=== PATIENT | female | born 1965 | race Caucasian/White ===

== ENCOUNTER 2021-05-10 01:50 | Outpatient (CLI) | payer MEDICAID, SELFPAY ==
[2021-05-10 07:38] LABS: Abs Immature Grans 0.01 10^3/uL (0.0-0.06); Absolute Basophil Count 0.03 10^3/uL (0.0-0.2); Absolute Eosinophil Count 0.06 10^3/uL (0.0-0.7); Absolute Lymphocyte Count 1.72 10^3/uL (1.2-3.4); Basophils % 0.7; Eosinophils % 1.5; HCT 38.4 % (36.0-46.0); HGB 12.2 g/dL (11.2-15.7); Immature Grans % 0.2; Lymphocytes % 41.7; MCH 26.8 pg (27.0-33.0); MCHC 31.8 % (32.0-36.0); MCV 84.2 fL (80-95); Monocytes % 7.3; Neutrophils % 48.6; Nucleated RBC 0 %; Platelet Count 220 10^3/uL (130-400); RBC 4.56 10^6/uL (3.93-5.22); RDW 15.4 % (11.7-14.6); RDW-SD 47.4 fL; WBC 4.12 10^3/uL (4.4-10.8)
[2021-05-10 07:48] LABS: Hemoglobin A1C 5.6 % (<5.7)
[2021-05-10 08:23] LABS: Iron 52 ug/dL (50-170); Total Iron Binding Capacity 431 ug/dL (250-450)
[2021-05-10 09:03] LABS: ALT 27 U/L (14-59); AST 17 U/L (15-37); Albumin 3.8 g/dL (3.4-5.0); Alkaline Phosphatase 141 U/L (46-116); Anion Gap 10.4 mmol/L (3-11); BUN 14 mg/dL (7-18); Bilirubin, Total 0.4 mg/dL (0.2-1.0); CO2 27.6 mmol/L (21.0-32.0); CREATININE 0.8 mg/dL (0.55-1.02); Calculated LDL 128 mg/dL (<100); Chloride 105 mmol/L (98-107); Cholesterol 230 mg/dL (<200); Ferritin 9 ng/mL (8-252); Folate > 20.0 ng/mL (8.6-20.0); Glucose 94 mg/dL (74-106); HDL Cholesterol 87 mg/dL (40-60); Potassium 4.5 mmol/L (3.5-5.1); Sodium 143 mmol/L (136-145); T4 5.8 ug/mL (4.7-13.3); TSH 3.21 uIU/mL (0.36-3.74); Total Protein 7.7 g/dL (6.4-8.2); Triglyceride 79 mg/dL (<150); Vitamin B12 198 pg/mL (193-986)
[2021-05-10 11:13] LABS: FREE T4 0.83 ng/dL (0.76-1.46)
[2021-05-10 17:14] LABS: T3,Free 3.4 pg/mL (2.8-5.3)
[2021-05-12 11:29] LABS: Lipoprotein (a) <6 mg/dL (<=30)
[2021-05-13 09:18] LABS: Homocysteine 11.4 umol/L (5.0-13.9)
[2021-05-13 19:24] LABS: Free Retinol (Vitamin A) 48.7 mcg/dL (32.5-78.0)
[2021-05-14 17:32] LABS: 25-Hydroxy D Total 12 ng/mL; 25-Hydroxy D2 <4.0 ng/mL; 25-Hydroxy D3 12 ng/mL
[2021-05-16 10:24] LABS: Insulin 6.1 uIU/mL (<29.0)
== END 2021-05-10 01:51 | disposition home or self-care (01) ==
LOC: LBO 01:50
PROVIDERS: Visit Provider Naturopath
DX: R63.5 Abnormal weight gain (principal); D50.9 Iron deficiency anemia, unspecified; R53.83 Other fatigue; E55.9 Vitamin D deficiency, unspecified; Z13.220 Encounter for screening for lipoid disorders; R79.89 Other specified abnormal findings of blood chemistry
CPT/HCPCS: 36415; 80053; 80061; 82306; 82533; 83090; 83695; 82607; 82728; 82746; 83036; 83525; 83540; 83550; 84436; 84439; 84443; 84481; 84590; 85025

== ENCOUNTER 2021-05-21 01:39 | Outpatient (CLI) | payer MEDICAID, SELFPAY ==
--- NOTE | 2021-05-21 14:10 | DI.RAD_ITS ---
Exam(s) XR HIP PELVIS ADULT BL EXAM: XR HIP PELVIS ADULT BL CLINICAL HISTORY: BILAT HIP AND LOW BACK PAIN, M25.551. TECHNIQUE: 2D digital imaging was performed. COMPARISON: No exams were available for comparison FINDINGS: BONES: No acute fracture is present. No bony destructive lesion is seen. JOINTS: No dislocation present. Hip joint space is well maintained. Minimal acetabular spurring. Mi nimal spurring at inferior SI joints. SOFT TISSUE: Normal. IUD. IMPRESSION: Minimal degenerative changes. DATA REPOSITORY: RADIATION DOSE DELIVERED:
--- NOTE | 2021-05-21 14:50 | DI.RAD_ITS ---
Exam(s) XR LUMBAR SPINE COMPLETE EXAM: XR LUMBAR SPINE COMPLETE CLINICAL HISTORY: BILAT HIP PAIN AND LOW BACK PAIN. TECHNIQUE: 2D digital imaging was performed. COMPARISON: No exams were available for comparison FINDINGS: BONES: No fracture or destructive lesion. Vertebral bodies are unremarkable. Small endplate osteophyt es. Mild facet degenerative changes at L4-5 and L5-S1. No spondylolysis DISKS: Intervertebral disc spaces are maintained. ALIGNMENT: Lumbar spinal alignment is within normal limits. No spondylolisthesis. No scoliosis. SOFT TISSUE: Normal. IUD. IMPRESSION: Mild degenerative changes. DATA REPOSITORY: RADIATION DOSE DELIVERED:
== END 2021-05-21 01:59 ==
PROVIDERS: Visit Provider Naturopath
DX: M47.817 Spondylosis without myelopathy or radiculopathy, lumbosacral region (principal); M16.0 Bilateral primary osteoarthritis of hip
CPT/HCPCS: 73521; 72110

== ENCOUNTER 2021-06-20 01:20 | Outpatient (CLI) | payer MEDICAID, SELFPAY ==
--- NOTE | 2021-06-20 07:15 | DI.MAMMO_ITS ---
Exam(s) MAMMO SCREENING EXAM: MAMMO SCREENING CLINICAL HISTORY: screening,Z12.39. TECHNIQUE: Bilateral full field digital CC and MLO mammographic images were obtained with 3D tomosyn thesis and utilizing computer aided detection (CAD). COMPARISON: Prior outside mammograms performed January 2019. Also 2017. FINDINGS: There has been no significant change in the appearance and distribution of fibroglandular tissue. There are no new spiculated masses nor malignant appearing microcalcification groups. Benign lymph nodes in both breasts are unchanged. There is no significant architectural distortion nor skin thickening-retraction. IMPRESSION: No radiographic evidence of malignancy. No significant change compared the prior outside mammograms l isted above. BI-RADS Category 1 - Negative Breast Density - Category A - Almost entirely fatty Breast density Category C or D implies that the patient has dense breast tissue. Dense breast tissue can make it harder to find cancer on a mammogram. Dense breast tissue is also associated with an incr eased risk of breast cancer. This information about the result of the mammogram report was provided to the patient to raise their awareness. Use this report when you speak with the patient about their risks for breast cancer, which includes their family history. At that time, you may recommend additional screening tests (Ultrasoun d or MRI) as these tests may add significant information. A negative radiographic report should not delay biopsy if a dominant or clinically suspicious mass is present. Up to ten percent of cancers are not identified on mammography. A negative report may reinforce clinical impression. Adenosis and dense breasts may obscure an underlying neoplasm. False positive reports average 6 to 10%. Patient will receive a letter notifying them of these results.
== END 2021-06-20 01:40 ==
PROVIDERS: PCP Student in an Organized Health Care Education/Training Program; Visit Provider Student in an Organized Health Care Education/Training Program
DX: Z12.31 Encounter for screening mammogram for malignant neoplasm of breast (principal)
CPT/HCPCS: 77063; 77067

== ENCOUNTER 2021-06-23 17:05 | Emergency (ER) | payer MEDICAID, SELFPAY ==
[2021-06-23] VITALS (15 sets, daily range): BP systolic 107–129; BP diastolic 54–79; PULSE 76–93; RESP 9–21; TEMP 36.6–36.9; O2SAT 93–100
--- NOTE | 2021-06-23 17:15 | DI.RAD_ITS ---
Exam(s) XR PORTABLE CHEST AP EXAM: XR PORTABLE CHEST AP CLINICAL HISTORY: PUI, Wheezing, Cough. TECHNIQUE: 2D digital imaging was performed. COMPARISON: No exams were available for comparison FINDINGS: Heart size is normal. The mediastinum is not widened. However, there density behind the lower heart is probably an hiatal hernia. Lungs are clear. No infiltrates nor obvious pleural effusions. IMPRESSION: Probable hiatal hernia. No obvious acute pulmonary findings. DATA REPOSITORY: RADIATION DOSE DELIVERED: All CT scans at this facility use at least one of these dose optimization techniques: automated exposure control; mA and/or kV adjustment per patient size (includes targeted e xams where dose is matched to clinical indication); or iterative reconstruction.
--- NOTE | 2021-06-23 17:30 | W.ED.GENAD ---
Discharge Plan Disposition Patient Disposition: HOME Condition: Improving Discharge Details Clinical Impression: Asthma, URI (upper respiratory infection) Primary Care Provider: Laura Multani ED Provider: Lucrecia Stevens Home Meds and New Rx's Prescriptions: Continued cholecalciferol (vitamin D3) 50 mcg (2,000 unit) capsule 50 mcg PO DAILY RF: 0 vitamin B complex Tablet 1 tab PO DAILY RF: 0 hormone support PO RF: 0 albuterol sulfate [ProAir HFA] 90 mcg/actuation HFA aerosol inhaler 2 puff inhalation Q6H PRN (Reason: shortness of breath or wheezing) Qty: 8.5 RF: 1 Mirena 20 mcg/24 hours (6 yrs) 52 mg intrauterine device 1 device intrauterine ONCE RF: 0 ferrous sulfate 325 mg (65 mg iron) tablet 325 mg PO DAILY RF: 0 Discharge Instructions Instructions: Asthma (ED), Upper Respiratory Infection (ED) Additional Instructions: Follow up with primary care provider in 3-5 days. Return to ED sooner if any worsening or concerns. Increase oral fluids. Please take Tylenol or Ibuprofen with food every 4-6 hours as needed for pain and swelling. Covid swab today was negative chest x-ray shows no evidence at this time for pneumonia. Referrals: Laura Multani DO [Primary Care Provider] - Medical Decision Making 56-year-old female presents to the ER with chief complaint of upper respiratory symptoms cough fever, body aches, sore throat. She reports a fever of 100.0 for last 2 days. She has been fully vaccinated, denies recent travel and works from home. Denies sick contacts. History of asthma, has not had to use an inhaler for a year however did use it last night. History of gastric bypass, iron deficiency, hypothyroid.Denies nausea, vomiting, diarrhea, abd pain. No other associated symptoms. At this time work-up ordered including CBC, CMP, chest x-ray, 1 L normal saline albuterol ipratropium neb and 125 of Solu-Medrol. CBC shows no evidence of leukocytosis no elevated white blood cell count, glucose is 108 Covid is negative. Imaging protocol: XR of the chest. Views: 1 view. COMPARISON: No relevant prior studies available. FINDINGS: Airway: Patent Lungs: Unremarkable. No consolidation. Pleural spaces: Unremarkable. No pleural effusion. No pneumothorax. Heart/Mediastinum: Unremarkable. No cardiomegaly. Bones/joints: No acute skeletal abnormality or aggressive osseous lesion. IMPRESSION: No acute findings. Thank you for allowing us to participate in the care of your patient. Dictated and Authenticated by: Jaziel Barriga MD Patient reevaluation, she reports feeling better after nebulizer and steroid. Discussed home care and offered cough medicine which patient declined at this time. Instructed to increase fluid, use inhaler as directed 1 to 2 puffs every 4-6 hours as needed for wheezing, alternate Tylenol and ibuprofen and follow-up with primary care provider patient verbalized understanding. Patient remained hemodynamically stable alert and oriented throughout stay. This text was generated using [employer] dictation system, please disregard any oddities of phrase or misspellings. HPI General Mode of arrival: ambulatory. Date/Time Provider Initiated Documentation: 06/23/21 17:17. Limitations to Documentation: no limitations. Information obtained by: patient and RN notes reviewed. HPI Narrative: 56-year-old female presents to the ER with chief complaint of upper respiratory symptoms cough fever, body aches, sore throat. She reports a fever of 100.0 for last 2 days. She has been fully vaccinated, denies recent travel and works from home. Denies sick contacts. History of asthma, has not had to use an inhaler for a year however did use it last night. History of gastric bypass, iron deficiency, hypothyroid.Denies nausea, vomiting, diarrhea, abd pain. No other associated symptoms. Related Data Home Medications Medication Instructions Recorded Confirmed levonorgestrel 20 mcg/24 hours (6 1 device INTRAUTERINE ONCE 05/21/21 06/23/21 yrs) 52 mg intrauterine device ferrous sulfate 325 mg (65 mg 325 mg PO DAILY 05/23/21 06/23/21 iron) tablet albuterol sulfate 90 mcg/actuation 2 puff INHALATION Q6H PRN #8.5 g 05/24/21 06/23/21 aerosol inhaler cholecalciferol (vitamin D3) 50 50 mcg PO DAILY 05/24/21 06/23/21 mcg (2,000 unit) capsule hormone support PO 05/24/21 vitamin B complex 1 tab PO DAILY 05/24/21 06/23/21 Previous Rx's Medication Instructions Recorded albuterol sulfate 90 mcg/actuation 2 puff INHALATION Q6H PRN #8.5 g 05/24/21 aerosol inhaler Allergies Allergy/AdvReac Type Severity Reaction Status Date / Time No Known Allergies Allergy Verified 06/23/21 17:14 General Stated Complaint: RespSymp JAVI: 3 Review of Systems All systems reviewed & are unremarkable except as noted in HPI and below Constitutional Constitutional: Reports body ache(s), Reports chills and Reports fever(s) ENT Ears, Nose, Mouth, and Throat: Reports as per HPI, Denies abnormal hearing, Denies change in voice, Denies otalgia and Reports odynophagia Cardiovascular Cardiovascular: Denies chest pain Respiratory Respiratory: Reports chest congestion, Reports cough and Reports pain with cough Gastrointestinal Gastrointestinal: Denies abdominal pain, Denies diarrhea, Reports odynophagia and Denies vomiting Genitourinary Genitourinary: Denies difficulty voiding and Denies dysuria Musculoskeletal Musculoskeletal: Reports myalgias Neurologic Neurologic: Denies abnormal hearing [facility] Medical History Amenorrhea x 1.5 yrs. Probable menopause. Asthma (~2013) Back pain Acute on chronic. Wondering about breast reduction. Dysphagia Recent choking episodes, difficulty w/ pills. Encounter for insertion of mirena IUD (11/10/16) Family history of diabetes mellitus in father Hip pain, right Possible ITB. Hx low back pain. Recent weight gain. History of blood transfusion Due to heavy menses over 3-4 years (x2), in [place]. Hypothyroid Hypovitaminosis D Intramural uterine fibroid Iron deficiency anemia (~2013) Joint pain Menometrorrhagia Poor sleep Weight gain Surgical History History of gastric bypass (~2001) Family History Brother Alcohol abuse Anxiety Depression Father Anxiety Depression Diabetes Hypertension Prostate cancer Mother Depression Hypertension Maternal Aunt Diabetes Paternal Aunt Diabetes Maternal Uncle Diabetes Paternal Uncle Diabetes Paternal Grandmother Heart disease Hypertension Paternal Grandfather Heart disease Hypertension Maternal Grandmother Hypertension Paternal Grandfather Hypertension Social History Smoking/Tobacco Use Status: Former Tobacco Use tobacco type: cigarettes Quit Date: 11/02/16 Tobacco: How many years used: 10 Smoking risk assessment performed?: Yes Alcohol Intake: current Alcohol Intake frequency: a few times a month Drug use: Never Substance use type: does not use Adopted: No Caregiver/Support person: No Foster care: No Household members: spouse Housing: house Number of Children: 1 number of grandchildren: 2 Communication Needs: Corrective Lenses Education Level: vocational Do you need help understanding health information?: Never 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 Pets and animals: No Sexually active: Yes Do you think of yourself as: straight/heterosexual Current gender identity: female What is your relationship status?: How often do you talk on the phone with friends or family?: three or more times per week How often do you get together with friends or relatives?: once per week Do you belong to any clubs or organized social groups?: no Panel score (0-1 are the most socially isolated patients): 2 What type of physical activity do you participate in: walking Duration: 30-45 minutes/day Frequency: 3-4 times per week Liliana/Rastafari: Oriental Orthodox Special liliana needs: No Seatbelt use: always Helmet use: Yes Helmet use: always Drive intox or ride w/intox auto haulaway driver: No Exam Narrative Exam Narrative: Constitutional: Alert and oriented x3. Appears stated age. Normal body habitus. Head: Normocephalic, no trauma. Eyes: Pupils PERRLA, Red reflex noted, EOM's intact. Eyelids symmetrical without lesions, discharge, or swelling. ENT: Bilateral TM's WNL, External ear normal to inspection, no mastoid TTP, swelling, or erythema, Nasal turbinates WNL, no nasal discharge. Normal dentition, Posterior pharynx WNL, no exudate. Chest: RRR, Normal S1, S2, distal pulses intact. Resp: Lungs scattered expiratory wheezes throughout. Musculoskeletal: Normal gait, 5/5 strength to all four extremities. Skin: No suspicious rashes or lesions. Capillary refill less than 2 sec. Neurologic: Cranial nerves II-XII intact. Alert and oriented x 3. DTR's intact. Hematologic/Lymphatic: No ecchymosis, no lymphadenopathy. Course Vital Signs Vital signs: Vital Signs Temperature 36.9 C 06/23/21 17:10 Pulse 88 06/23/21 17:10 Respiratory Rate 16 06/23/21 17:10 Blood Pressure 129/79 06/23/21 17:10 Pulse Oximetry 100 06/23/21 17:10 Temperature 36.9 C 06/23/21 17:10 Temperature Source Skin 06/23/21 17:10 Pulse 88 06/23/21 17:10 Respiratory Rate 16 06/23/21 17:10 Respiratory Effort Non-Labored 06/23/21 17:16 Respiratory Depth Normal 06/23/21 17:16 Blood Pressure 129/79 06/23/21 17:10 Pulse Oximetry 100 06/23/21 17:10 Oxygen Delivery Method Room Air 06/23/21 17:10 Oxygen Flow Rate 0 06/23/21 17:10 Pain Level 7 06/23/21 17:10
[2021-06-23 18:15] LABS: Source Nasal/Nares
--- NOTE | 2021-06-23 18:22 | DI.VRAD_ITS ---
PROCEDURE INFORMATION: Exam: XR Chest Exam date and time: 06/23/2021 5:30 PM Age: 56 years old Clinical indication: Cough TECHNIQUE: Imaging protocol: XR of the chest. Views: 1 view. COMPARISON: No relevant prior studies available. FINDINGS: Airway: Patent Lungs: Unremarkable. No consolidation. Pleural spaces: Unremarkable. No pleural effusion. No pneumothorax. Heart/Mediastinum: Unremarkable. No cardiomegaly. Bones/joints: No acute skeletal abnormality or aggressive osseous lesion. IMPRESSION: No acute findings. Dictated and Authenticated by: Jaziel Gooden MD. Ordering:HUI Singer MD
[2021-06-23] MEDS: methylPREDNISolone SUCC 125 MG VIAL IVP (18:29)
[2021-06-23] MEDS: Albuterol/Ipratropium 3 ML UPD VIAL UPD (18:29)
[2021-06-23 18:30] LABS: Abs Immature Grans 0.01 10^3/uL (0.0-0.06); Absolute Basophil Count 0.03 10^3/uL (0.0-0.2); Absolute Eosinophil Count 0.03 10^3/uL (0.0-0.7); Absolute Monocyte Count 0.41 10^3/uL (0.1-0.8); Absolute Neutrophil Count 3.84 10^3/uL (1.2-6.7); Basophils % 0.6; Eosinophils % 0.6; HCT 39.1 % (36.0-46.0); HGB 12.3 g/dL (11.2-15.7); Immature Grans % 0.2; Lymphocytes % 17.2; MCH 26.6 pg (27.0-33.0); MCHC 31.5 % (32.0-36.0); MCV 84.6 fL (80-95); MPV 11.1 fL (8.0-11.0); Monocytes % 7.9; Neutrophils % 73.5; Nucleated RBC 0 %; Platelet Count 201 10^3/uL (130-400); RBC 4.62 10^6/uL (3.93-5.22); RDW 14.6 % (11.7-14.6); RDW-SD 44.7 fL; WBC 5.22 10^3/uL (4.4-10.8)
[2021-06-23] MEDS: Normal Saline 1,000 ML 1000 ML IV (18:30)
[2021-06-23 18:41] LABS: ALT 25 U/L (14-59); AST 22 U/L (15-37); Albumin 3.8 g/dL (3.4-5.0); Alkaline Phosphatase 136 U/L (46-116); Anion Gap 7.9 mmol/L (3-11); BUN 12 mg/dL (7-18); Bilirubin, Total 0.2 mg/dL (0.2-1.0); CO2 28.1 mmol/L (21.0-32.0); CREATININE 0.8 mg/dL (0.55-1.02); Chloride 106 mmol/L (98-107); Glucose 108 mg/dL (74-106); Potassium 4.2 mmol/L (3.5-5.1); Sodium 142 mmol/L (136-145); Total Protein 7.9 g/dL (6.4-8.2)
[2021-06-23 19:07] LABS: COVID-19 PCR Negative (Negative)
== END 2021-06-23 22:05 | disposition home or self-care (01) ==
PROVIDERS: Emergency Provider Registered Nurse Emergency; PCP Student in an Organized Health Care Education/Training Program
DX: J45.909 Unspecified asthma, uncomplicated (principal); J06.9 Acute upper respiratory infection, unspecified
CPT/HCPCS: 36415; 80053; 87635; 94640; 96361; 96374; 99284; 71045; 85025; J2930; J7620

== ENCOUNTER 2021-07-12 12:00 | Outpatient (REF) | payer MEDICAID, SELFPAY ==
--- NOTE | 2021-07-12 10:30 | PAPFT_PTH ---
PATIENT: Caridad Palacios LOC: [facility] U#:[id number] AGE/SX: 56/F ROOM: RE07/12/[address]: JAYSON Celestin : 1965 BED: DIS: 07/12/2021 SPEC #: [id number] RECD: 07/12/21 12:48 STATUS: KITA REQ #: [id number] DAI: 07/12/21 10:[address]: Cierra Ceballos DEPT: [facility] Cytology RECD BY: Isabelle Roa ENTERED: 07/12/21 12:48 SP TYPE: PAPFT OTHR DR: Laura Multani, DO Tissues: 1 - CX/ENDOCX FOR PAP SMEARS Procedures: PAP THIN PREP/UVM Screening HPV DNA PROBE Comments: [id number]
== END 2021-07-12 12:01 | disposition home or self-care (01) ==
LOC: LBN 12:00
PROVIDERS: PCP Student in an Organized Health Care Education/Training Program; Visit Provider Nurse Practitioner Family
DX: Z12.4 Encounter for screening for malignant neoplasm of cervix (principal); Z11.51 Encounter for screening for human papillomavirus (HPV)
CPT/HCPCS: 88142; 87624

== ENCOUNTER 2022-01-10 03:25 | Outpatient (CLI) | payer MEDICAID, SELFPAY ==
[2022-01-10 11:57] LABS: Source Nasal/Nares
[2022-01-10 15:39] LABS: COVID-19 PCR Negative (Negative)
== END 2022-01-10 03:26 | disposition home or self-care (01) ==
LOC: LBO 03:25
PROVIDERS: PCP Student in an Organized Health Care Education/Training Program; Visit Provider Surgery
DX: Z20.822 Contact with and (suspected) exposure to COVID-19 (principal); Z01.818 Encounter for other preprocedural examination
CPT/HCPCS: 87635

== ENCOUNTER 2022-05-30 17:02 | Outpatient (REF) | payer MEDICAID, SELFPAY ==
--- NOTE | 2022-05-30 16:08 | ENDOMET_PTH ---
PATIENT: Caridad Palacios LOC: [facility] U#:[id number] AGE/SX: 57/F ROOM: RE05/30/[address]: Ally Coleman MD : 1965 BED: DIS: 05/30/2022 SPEC #: [id number] RECD: 05/30/22 17:21 STATUS: KITA REQ #: [id number] DAI: 05/30/22 16:[address]: Ally Coleman DEPT: Surgical Specimen RECD BY: Isabelle Roa ENTERED: 05/30/22 17:22 SP TYPE: Endomet OTHR DR: Laura Multani DO Tissues: 1 - ENDOMETRIUM BX/CURRETTE Procedures: GROSS AND MICRO LEVEL 4 Comments: [id number]
== END 2022-05-30 17:03 | disposition home or self-care (01) ==
LOC: LBN 17:02
PROVIDERS: PCP Student in an Organized Health Care Education/Training Program; Visit Provider Obstetrics & Gynecology
DX: N85.01 Benign endometrial hyperplasia (principal); N95.0 Postmenopausal bleeding
CPT/HCPCS: 88305

== ENCOUNTER → 2022-06-10 02:33 | Outpatient (CLI) | payer MEDICAID, SELFPAY ==
--- NOTE | 2022-06-10 07:45 | DI.US_ITS ---
Exam(s) US PELVIS TRANSVAGINAL EXAM: US PELVIS TRANSVAGINAL CLINICAL HISTORY: evaluate endometrium, r/o mass,postmenopausal bleeding,n95.0 TECHNIQUE: Transabdominal and transvaginal imaging was performed using standard protocol. COMPARISON: No exams were available for comparison FINDINGS: KIDNEYS: Kidneys are symmetric in size. No evidence of renal calculi. No evidence of hydronephrosis. No renal mass or cyst identified. UTERUS: Mildly retroverted. 8.2 x 3.8 x 4.9 cm. Endometrium: 7 millimeters, thickened for postmenopausal patient. No visible focal abnormality. Myometrium: Unremarkable. Cervix: Nabothian cyst. OVARIES: Right: Cyst or mass: None. Left: Not visualized. CUL-DE-SAC: Free fluid: None. IMPRESSION: 1. Mild thickening of the endometrial stripe. No visible focal abnormality. 2. Unremarkable right ovary. Left ovary not visualized. DATA REPOSITORY:
== END ==
PROVIDERS: PCP Student in an Organized Health Care Education/Training Program; Visit Provider Obstetrics & Gynecology
DX: N95.0 Postmenopausal bleeding (principal)
CPT/HCPCS: 76830; 76856

== ENCOUNTER 2022-07-11 01:35 | Outpatient (CLI) | payer MEDICAID, SELFPAY ==
[2022-07-11 12:27] LABS: Abs Immature Grans 0.01 10^3/uL (0.0-0.06); Absolute Basophil Count 0.02 10^3/uL (0.0-0.2); Absolute Eosinophil Count 0.05 10^3/uL (0.0-0.7); Absolute Lymphocyte Count 1.66 10^3/uL (1.2-3.4); Absolute Monocyte Count 0.42 10^3/uL (0.1-0.8); Basophils % 0.4; HCT 37.4 % (36.0-46.0); HGB 11.9 g/dL (11.2-15.7); Immature Grans % 0.2; Lymphocytes % 33.5; MCH 25.6 pg (27.0-33.0); MCHC 31.8 % (32.0-36.0); MCV 80 fL (80-95); MPV 11.4 fL (8.0-11.0); Monocytes % 8.5; Neutrophils % 56.4; Platelet Count 222 10^3/uL (130-400); RBC 4.65 10^6/uL (3.93-5.22); RDW 14.9 % (11.7-14.6); RDW-SD 43.2 fL; WBC 4.96 10^3/uL (4.4-10.8)
[2022-07-11 13:41] LABS: ALT 26 U/L (14-59); AST 22 U/L (15-37); Albumin 3.6 g/dL (3.4-5.0); Alkaline Phosphatase 139 U/L (46-116); Anion Gap 12.3 mmol/L (3-11); BUN 17 mg/dL (7-18); Bilirubin, Total 0.4 mg/dL (0.2-1.0); CO2 21.7 mmol/L (21.0-32.0); CREATININE 0.8 mg/dL (0.55-1.02); Calculated LDL 113 mg/dL (<100); Chloride 106 mmol/L (98-107); Cholesterol 236 mg/dL (<200); Estimated GFR 86.42 (mL/min/1.73m2); Glucose 100 mg/dL (74-106); HDL Cholesterol 108 mg/dL (40-60); Potassium 4.1 mmol/L (3.5-5.1); Sodium 140 mmol/L (136-145); TSH (W/Ref FT4) 1.86 uIU/mL (0.36-3.74); Total Protein 7.6 g/dL (6.4-8.2); Triglyceride 79 mg/dL (<150)
== END 2022-07-11 01:36 | disposition home or self-care (01) ==
LOC: LBO 01:35
PROVIDERS: PCP Student in an Organized Health Care Education/Training Program; Referring Provider Student in an Organized Health Care Education/Training Program; Visit Provider Student in an Organized Health Care Education/Training Program
DX: N95.0 Postmenopausal bleeding (principal); Z86.2 Personal history of diseases of the blood and blood-forming organs and certain disorders involving the immune mechanism; Z13.220 Encounter for screening for lipoid disorders; E87.8 Other disorders of electrolyte and fluid balance, not elsewhere classified; R63.5 Abnormal weight gain; Z98.84 Bariatric surgery status; R79.89 Other specified abnormal findings of blood chemistry
CPT/HCPCS: 36415; 80053; 80061; 84443; 85025

== ENCOUNTER 2022-08-22 02:01 | Outpatient (CLI) | payer MEDICAID, SELFPAY ==
[2022-08-22 09:39] LABS: HCT 36.7 % (36.0-46.0); HGB 11.4 g/dL (11.2-15.7); MCHC 31.1 % (32.0-36.0); MCV 81 fL (80-95); MPV 11.5 fL (8.0-11.0); Platelet Count 218 10^3/uL (130-400); RBC 4.56 10^6/uL (3.93-5.22); RDW 15.7 % (11.7-14.6); RDW-SD 45.1 fL; WBC 3.69 10^3/uL (4.4-10.8)
[2022-08-22 10:24] LABS: ALT 23 U/L (14-59); AST 16 U/L (15-37); Albumin 3.8 g/dL (3.4-5.0); Alkaline Phosphatase 124 U/L (46-116); Anion Gap 10.5 mmol/L (3-11); BUN 17 mg/dL (7-18); Bilirubin, Total 0.5 mg/dL (0.2-1.0); CO2 24.5 mmol/L (21.0-32.0); CREATININE 0.8 mg/dL (0.55-1.02); Chloride 106 mmol/L (98-107); Estimated GFR 86.42 (mL/min/1.73m2); Glucose 76 mg/dL (74-106); Potassium 3.7 mmol/L (3.5-5.1); Sodium 141 mmol/L (136-145); Vitamin B12 284 pg/mL (193-986)
[2022-08-22 10:36] LABS: Iron 63 ug/dL (50-170); Total Iron Binding Capacity 436 ug/dL (250-450); Transferrin Sat 14 % (15-50)
== END 2022-08-22 02:02 | disposition home or self-care (01) ==
LOC: LBO 02:01
PROVIDERS: PCP Student in an Organized Health Care Education/Training Program; Referring Provider Student in an Organized Health Care Education/Training Program; Visit Provider Student in an Organized Health Care Education/Training Program
DX: D50.9 Iron deficiency anemia, unspecified (principal); E03.9 Hypothyroidism, unspecified; E55.9 Vitamin D deficiency, unspecified; E63.9 Nutritional deficiency, unspecified; N95.0 Postmenopausal bleeding; R13.10 Dysphagia, unspecified
CPT/HCPCS: 36415; 80053; 85027; 82607; 83540; 83550

== ENCOUNTER 2022-09-04 06:10 | Day surgery (SDC) | payer MEDICAID, SELFPAY ==
[2022-09-04 06:38] VITALS: BP 99/65; PULSE 56; RESP 16; TEMP 36.4; O2SAT 99
--- NOTE | 2022-09-04 06:51 | ANES.PREOP_ITS ---
General Info Date of Service Date Performed: 09/04/22 Height: 5 ft 4 in Weight: 119.3 kg Body Mass Index (BMI): 45.1 Surgical Procedure: Operation Date: 09/04/22 07:40 Proposed Procedure Side Surgeon p Dilation & Curettage Ally Coleman MD Meds Allergies and Home Medications Allergies Allergy/AdvReac Type Severity Reaction Status Date / Time No Known Allergies Allergy Verified 09/04/22 06:38 Home Medication Medication Instructions Recorded ferrous sulfate 325 mg (65 mg 325 mg PO DAILY 05/23/21 iron) tablet albuterol sulfate 90 mcg/actuation 2 puff inhalation Q6H PRN 05/24/21 aerosol inhaler (ProAir HFA) shortness of breath or wheezing #8.5 grams vitamin B complex 1 tab PO DAILY 05/24/21 calcium carbonate 500 mg calcium 500 mg PO DAILY 07/05/21 (1,250 mg) tablet cholecalciferol (vitamin D3) 50 50 mcg PO DAILY 07/05/21 mcg (2,000 unit) capsule compressor, for nebulizer #1 ea 08/04/21 ipratropium 0.5 mg-albuterol 3 mg 3 ml inhalation Q6H PRN 08/04/21 (2.5 mg base)/3 mL nebulization wheezing,SOB #30 mL soln levothyroxine 50 mcg tablet 50 mcg PO DAILY #90 tabs 07/06/22 estradiol 0.05 mg-norethindrone 1 patch transdermal .twice weekly 07/17/22 0.25 mg/24 hr semiwkly transderm #8 ea patch ammonium lactate 12 % topical cream 1 applic topical BID #385 grams 08/15/22 citalopram 10 mg tablet (Celexa) 20 mg PO DAILY #90 tabs 08/15/22 gabapentin 100 mg capsule 200 mg PO QHS #90 caps 08/15/22 naproxen 375 mg tablet,delayed 375 mg PO BID PRN pain and 08/15/22 release (EC-Naproxen) INFLAMMATION #30 tabs Current Visit Medications: Current Medications Generic Name Dose Route Start Last Admin Trade Name Freq PRN Reason Stop Dose Admin Ringer's Solution 1,000 mls @ 125 mls/hr 09/04/22 06:00 IV 10/03/22 23:59 INFUSION CYRUS IV Miscellaneous Supplies 1 each 09/04/22 06:00 Iv Access IV 10/03/22 23:59 DIRECTED CYRUS Sodium Chloride 0 ml 09/04/22 06:00 Normal Saline Flush 10 Ml Syr IV 10/03/22 23:59 PRN PRN Sodium Chloride 0 ml 09/04/22 06:00 Normal Saline 10 Ml Vial IJ 10/03/22 23:59 DIRECTED PRN Sterile Water 0 ml 09/04/22 06:00 Water,Injection,Sterile 10 Ml Vial IJ 10/03/22 23:59 DIRECTED PRN PFSH Active Problems Active Problems: Problem Status Onset Code Xeroderma 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 Wondering about breast reduction. Family history of diabetes mellitus in father Hip pain, right Possible ITB. Hx low back pain. Recent weight gain. History of blood transfusion Due to heavy menses over 3-4 years (x2), in [place]. Hypothyroid Intramural uterine fibroid Iron deficiency anemia (~2013) Joint pain [facility] [place] Post-menopausal bleeding Endo bx 05/30/22 proliferative endometrium Sono: 7mm endo stripe with no further bleeding. URI (upper respiratory infection) ED, 06/2021 ... Hx Asthma Vitamin D deficiency (~2015) Surgical History Surgical History H/O bilateral breast reduction surgery (~08/26/21) 08/26/21[place] [facility] [place] surgery; Becki Phillips. [employer] History of gastric bypass (~2001) Tobacco Smoking/Tobacco Use Status: Former Tobacco Use Passive smoking exposure: No Alcohol Alcohol Intake: current Alcohol intake frequency: a few times a month Substance Use Substance use: Never Substance use type: does not use Prental History History 3 Para 1 Hx # Term Pregnancies Multiple births Hx # Pregnancies Ectopic pregnancies AB induced 2 Hx Number of Living Children 1 AB spontaneous Past Pregnancies Del. Date GA/Weeks # Preg Succ Route Wgt Sex Labor Lgth Anesth esia Location Prov Complic 11/08/84 40 No Yes vaginal Male [place] Delivery Date: 11/08/84 Last Updated by: Vania Bhandari Pt stated baby born at home Vital Signs and Lab Results Vital Signs Most Recent Vital Signs in EMR: Most Recent Vital Signs Temp Pulse Resp BP Pulse Ox 36.4 C L 56 L 16 99/65 L 99 09/04/22 06:38 09/04/22 06:38 09/04/22 06:38 09/04/22 06:38 09/04/22 06:38 Lab Results Blood Type / Crossmatch: No Data to Display Complete Blood Count: White Blood Count 3.69 10^3/uL (4.4-10.8) L 08/22/22 09:25 Red Blood Count 4.56 10^6/uL (3.93-5.22) 08/22/22 09:25 Hemoglobin 11.4 g/dL (11.2-15.7) 08/22/22 09:25 Hematocrit 36.7 % (36.0-46.0) 08/22/22 09:25 Platelet Count 218 10^3/uL (130-400) 08/22/22 09:25 Complete Metabolic Panel: Sodium 141 mmol/L (136-145) 08/22/22 09:25 Potassium 3.7 mmol/L (3.5-5.1) 08/22/22 09:25 Chloride 106 mmol/L (98-107) 08/22/22 09:25 Carbon Dioxide 24.5 mmol/L (21.0-32.0) 08/22/22 09:25 BUN 17 mg/dL (7-18) 08/22/22 09:25 Creatinine 0.8 mg/dL (0.55-1.02) 08/22/22 09:25 Est GFR (CKD-EPI 2020) 86.42 (mL/min/1.73m2) 08/22/22 09:25 Calcium 9.0 mg/dL (8.5-10.1) 08/22/22 09:25 Albumin 3.8 g/dL (3.4-5.0) 08/22/22 09:25 Glucose 76 mg/dL (74-106) 08/22/22 09:25 Liver Function Panel: Alanine Aminotransferase (ALT/SGPT) 23 U/L (14-59) 08/22/22 09: 25 Aspartate Amino Transf (AST/SGOT) 16 U/L (15-37) 08/22/22 09:25 Coagulation Panel: No Data to Display Cardiac Panel: No Data to Display Arterial Blood Gas: No Data to Display Venous Blood Gas: No Data to Display Pancreas Panel: No Data to Display Thyroid Panel: No Data to Display Infectious Disease: No Data to Display Blood Cultures: No Data to Display Toxicology Panel: No Data to Display Anesthesia Assessment and Plan Anesthesia History Personal History: No History of Anesthesia Complications Family History: No Family History of Anesthesia Complications Exercise Tolerance Exercise Tolerance: Metabolic Equivalents>4 Pertinent Negatives Pertinent Negatives: No Symptoms of GERD, No Major Cardiovascular Symptoms or Complaints, No Major Pulmonary Symptoms or Complaints and No History of CVA/TIA Cardiac & Pulmonary Exam Cardiac Exam: Normal S1/S2 Heart Sounds Pulmonary Exam: Clear Bilateral Breath Sounds Implantable Cardiac Device Does patient have a Pacemaker or an ICD?: No Airway Exam Known Difficult Airway: No Mallampati Class: 2 Mouth Opening: Normal (> 3cm) Thyromental Distance: Greater than 3 cm Neck Range of Motion: Full ROM Neck Circumference: Normal Teeth Condition: Normal Dentition ASA Classification ASA Score: ASA 3 Emergency Case?: No NPO Status NPO Status: NPO Clears >2 hours, Solids >8 hours Anesthesia Plan Resuscitation Status: Full Code Anesthesia Technique: General Anesthesia Airway Planned: Natural Airway Monitors Used: Standard Monitors
[2022-09-04] MEDS: Lactated Ringers 1,000 ML 125 ML IV (06:52)
[2022-09-04 06:54] VITALS: BMI 45.1
--- NOTE | 2022-09-04 07:45 | ENDOMET_PTH ---
PATIENT: Caridad Palacios LOC: [facility] U#:[id number] AGE/SX: 57/F ROOM: RE09/04/[address]: Ally Coleman MD : 1965 BED: DIS: 09/04/2022 SPEC #: [id number] RECD: 09/04/22 12:54 STATUS: KITA REQ #: [id number] DAI: 09/04/22 07:[address]: Ally Coleman DEPT: Surgical Specimen RECD BY: Isabelle Roa ENTERED: 09/04/22 12:54 SP TYPE: Endomet OTHR DR: Laura Multani DO Tissues: 1 - ENDOMETRIUM BX/CURRETTE Procedures: GROSS AND MICRO LEVEL 4 Comments: [id number]
[2022-09-04 08:00] VITALS: BP 110/62; PULSE 68; RESP 16; TEMP 36.5; O2SAT 99
[2022-09-04 08:28] VITALS: BP 114/79; PULSE 55; RESP 16; TEMP 36.3; O2SAT 100
--- NOTE | 2022-09-04 09:34 | W.PM.OP ---
Date of service: 09/04/22 Time of Service: 08:00 Operative Note Operative Note DATE OF PROCEDURE: 09/04/22 PRE-OP DIAGNOSIS: PMB POST-OP DIAGNOSIS: same PROCEDURE: D&C SURGEON: Ally Coleman Refer to Anesthesia Record ESTIMATED BLOOD LOSS: 10 COMPLICATIONS: None Patient was transported to: same day Patient's condition: stable Indications: Pt has had intermittent bleeding for the past few months. She had an endo bx showing proliferative endometrium at the end of May but then she continued bleeding so we opted for a D&C. She started HRT 6wks ago as well with good improvement in her sxms. Findings: Normal sized uterus. No obvious abnormalities Procedure Description: After informed consent was signed the patient was taken to the operating room and given General room air anesthesia. SCDs were placed on her legs. She was prepped and draped in the dorsal lithotomy position in the [facility]. A time out was performed. She emptied her bladder just prior to the procedure. Exam under anesthesia revealed normal external genitalia, vagina normal for age and a normal sized uterus. A speculum was placed into the vagina to reveal the cervix. The anterior lip of the cervix was grasped with a single tooth tenaculum. The cervix was dilated. A sharp curettage was used to thoroughly sample the endometrium. The tenaculum was removed from the cervix with good hemostasis with silver nitrate. The speculum was removed from the vagina. The patient was placed back into the supine position. She was moved to the stretcher and taken to the recovery room in stable condition.
--- NOTE | 2022-09-04 09:45 | W.PM.DSUDISC ---
Date of service: 09/04/22 Time of Service: 09:45 Discharge Plan Disposition Patient Disposition: HOME Condition: Good Discharge Details Attending Provider: Ally Coleman Primary Care Provider: Laura Multani Home Meds and New Rx's Prescriptions: No Action vitamin B complex Tablet 1 tab PO DAILY Label Comments: B12 and folate albuterol sulfate [ProAir HFA] 90 mcg/actuation HFA aerosol inhaler 2 puff inhalation Q6H PRN (Reason: shortness of breath or wheezing) Qty: 8.5 1RF Rx Instructions: Substitutions or generic OK; dispense as best filled per insurance... cholecalciferol (vitamin D3) 50 mcg (2,000 unit) capsule 50 mcg PO DAILY Rx Instructions: Vit D emulsion (uncertain of dosing - may be higher dose) 07/05/21 calcium carbonate 500 mg calcium (1,250 mg) tablet 500 mg PO DAILY Hold Instructions: Home Medication placed on hold at Doctor's office ipratropium-albuterol 0.5 mg-3 mg(2.5 mg base)/3 mL solution for nebulization 3 ml inhalation Q6H PRN (Reason: wheezing,SOB) Qty: 30 1RF (DME) compressor, for nebulizer Device See Rx Instructions .ROUTE .MEDSUPPLY Qty: 1 0RF Rx Instructions: As directed for wheezing, SOB. Use BID if upper respiratory infectn naproxen [EC-Naproxen] 375 mg tablet,delayed release (DR/EC) 375 mg PO BID PRN (Reason: pain and INFLAMMATION) Qty: 30 1RF Rx Instructions: Trial x 5 days and re-evaluate gabapentin 100 mg capsule 200 mg PO QHS Qty: 90 1RF Rx Instructions: Trial, (1) qHS .. may increase to 300mg over a week. citalopram [Celexa] 10 mg tablet 20 mg PO DAILY Qty: 90 1RF Rx Instructions: INCREASING TO (20mg) as of 08/15/22 ammonium lactate 12 % cream 1 applic topical BID Qty: 385 1RF levothyroxine 50 mcg tablet 50 mcg PO DAILY Qty: 90 1RF Rx Instructions: Clinical hypothyroid. estradiol-norethindrone acet 0.05-0.25 mg/24 hr patch semiweekly 1 patch transdermal .twice weekly Qty: 8 6RF ferrous sulfate 325 mg (65 mg iron) tablet 325 mg PO DAILY Discharge Instructions Stand Alone Forms: Anesthesia Discharge Inst., DSU Post [employer]CH[employer]ICIAN Surgery, Argelia Chávez (DSU) Activity:: Activity as Tolerated Diet:: As Tolerated Discharge Orders Discharge Orders: Discharge Order (Routine); Ordered 09/04/22 Ordered By: Ally Coleman Discharge Data Discharge Date/Time-TO BE ENTERED AT DEPARTURE: 09/04/22 08:57 Discharge Comment: Pt d/c'd with spouse in personal vehicle.
--- NOTE | 2022-09-04 11:07 | W.ANESPOSTOP ---
Postoperative Evaluation Date, Time and Location Date Performed: 09/04/22 Time Performed: 08:28 Patient Location: Day Surgery Unit Vital Signs Most Recent Imported Vital Signs: Most Recent Vital Signs Temp Pulse Resp BP Pulse Ox 36.3 C L 55 L 16 114/79 100 09/04/22 08:28 09/04/22 08:28 09/04/22 08:28 09/04/22 08:28 09/04/22 08:28 Pain Score Most Recent Pain Score: Most Recent Pain Score Pain Level 0 09/04/22 08:28 Assessment Mental Status: Awake (Alert & Oriented to Patient Baseline) Airway and Respiratory Function: Patent airway with normal (patient baseline) respiratory exam Cardiovascular Function: Hemodynamically Stable Hydration Status: Adequately Hydrated Nausea & Vomiting: No Nausea or Vomiting Pain: Pt. Denies Any Pain Peripheral Nerve Block: Patient did not receive a nerve block Postoperative Comments:: Dentures in preoperative condition, one observable tooth missing from upper plate.
== END 2022-09-04 08:57 | disposition home or self-care (01) ==
PROVIDERS: PCP Student in an Organized Health Care Education/Training Program; Visit Provider Obstetrics & Gynecology
PROC: (CPT 58120; principal; 2022-09-04 07:30)
DX: N95.0 Postmenopausal bleeding (principal); D64.9 Anemia, unspecified; Z98.84 Bariatric surgery status; N85.00 Endometrial hyperplasia, unspecified
CPT/HCPCS: 58120; 81025; 88305; 87624; J2250; J2704

== ENCOUNTER → 2022-09-08 01:41 | Outpatient (CLI) | payer MEDICAID, SELFPAY ==
--- NOTE | 2022-09-08 06:44 | DI.MAMMO_ITS ---
Exam(s) MAMMO SCREENING EXAM: MAMMO SCREENING CLINICAL HISTORY: screening,z12.39. TECHNIQUE: Bilateral full field digital CC and MLO mammographic images were obtained with 3D tomosyn thesis and utilizing computer aided detection (CAD). COMPARISON: Prior mammograms were reviewed. FINDINGS: Compared to the most recent mammogram of June 2021 there has been bilateral reduction mammoplasty s urgery. There are no new significant findings in left breast. In the right breast there is a new prominent area of asymmetric density laterally located approximate ly 11 cm in from the nipple. This measures 5 x 4 cm. Within this asymmetric tissue are 2 similar ap pearing developing on benign oil cysts. No malignant-appearing microcalcification groups in this region. However, there appears to be a dila jodie duct extending from this density to the retroareolar region. There is no significant architectural distortion nor skin thickening-retraction. IMPRESSION: 1. No radiographic evidence of malignancy in left breast. 2. Abnormal right breast finding as described above. Although this may just represent an area of seq uela of fat necrosis (reduction surgery was performed August 2021), I recommend further imaging be p erformed including spot compression views and breast ultrasound. BI-RADS Category 0 - Assessment Incomplete: Need additional imaging evaluation Breast Density - Category B - Scattered areas of fibroglandular density Breast density Category C or D implies that the patient has dense breast tissue. Dense breast tissue can make it harder to find cancer on a mammogram. Dense breast tissue is also associated with an incr eased risk of breast cancer. This information about the result of the mammogram report was provided to the patient to raise their awareness. Use this report when you speak with the patient about their risks for breast cancer, which includes their family history. At that time, you may recommend additional screening tests (Ultrasoun d or MRI) as these tests may add significant information. A negative radiographic report should not delay biopsy if a dominant or clinically suspicious mass is present. Up to ten percent of cancers are not identified on mammography. A negative report may reinforce clinical impression. Adenosis and dense breasts may obscure an underlying neoplasm. False positive reports average 6 to 10%. Patient will receive a letter notifying them of these results.
== END ==
PROVIDERS: PCP Student in an Organized Health Care Education/Training Program; Visit Provider Student in an Organized Health Care Education/Training Program
DX: Z12.31 Encounter for screening mammogram for malignant neoplasm of breast (principal); R92.8 Other abnormal and inconclusive findings on diagnostic imaging of breast
CPT/HCPCS: 77063; 77067

== ENCOUNTER → 2022-09-12 00:17 | Outpatient (CLI) | payer MEDICAID, SELFPAY ==
--- NOTE | 2022-09-12 | DI.MAMMO_ITS ---
Exam(s) MG MAMMO SCREEN CALL BACK UNI US BREAST RT COMPLETE EXAM: MG MAMMO SCREEN CALL BACK UNI -RIGHT AND COMPLETE RIGHT BREAST ULTRASOUND CLINICAL HISTORY: ASYMMETRIC DENSITY RT BREAST. TECHNIQUE: Unilateral spot mammographic images obtained with 3D tomosynthesisand utilizing computer aided detection (CAD). . Complete RIGHT breast Ultrasound was also performed, including all 4 quadrants, the retroareolar surinder on, and the ipsilateral axilla. COMPARISON: Prior mammograms were reviewed. This additional imaging was performed due to findings described on the recent screening mammogram of 09/08/2022. FINDINGS: DIAGNOSTIC MAMMOGRAM: Additional mammographic view performed todayrenders this area less concerning.There appear to be 2 de veloping oil cysts in this area, related to fat necrosis. COMPLETE RIGHT BREAST ULTRASOUND: Ultrasound performed today reveals findings at the 9 o'clock position which correspond to the finding s evident on the mammogram. At this location there are 2 cystic findings. One is a simple appearing microcyst measuring 8 x 9 millimeters. The other exhibits similar size but with a internal echogeni c finding which is probably element of hemorrhage or proteinaceous fluid. In the same area there is tissue finding consistent with element of scarring. However, there are no concerning masses evident on ultrasound examination all 4 quadrants.. Scanning of the ipsilateral axilla reveals no significant adenopathy. IMPRESSION: 1. No radiographic evidence of malignancy. 2. Benign ultrasound findings in the right breast as described above. 3. The findings in the right breast are related to an element of fat necrosis in this patient had re cent reduction surgery. Appropriate follow-up is to keep this patient on her yearly mammogram schedule, with earlier imaging if a self detected breast change is noted.. The patient was informed of these findings and recommendations prior to leaving the department today. BI-RADS Category 2-benign findings. Breast Density - Category B - Scattered areas of fibroglandular density Breast density Category C or D implies that the patient has dense breast tissue. Dense breast tissue can make it harder to find cancer on a mammogram. Dense breast tissue is also associated with an incr eased risk of breast cancer. This information about the result of the mammogram report was provided to the patient to raise their awareness. Use this report when you speak with the patient about their risks for breast cancer, which includes their family history. At that time, you may recommend additional screening tests (Ultrasoun d or MRI) as these tests may add significant information. A negative radiographic report should not delay biopsy if a dominant or clinically suspicious mass is present. Up to ten percent of cancers are not identified on mammography. A negative report may reinforce clinical impression. Adenosis and dense breasts may obscure an underlying neoplasm. False positive reports average 6 to 10%. Patient will receive a letter notifying them of these results.
== END ==
PROVIDERS: PCP Student in an Organized Health Care Education/Training Program; Visit Provider Student in an Organized Health Care Education/Training Program
DX: Z12.31 Encounter for screening mammogram for malignant neoplasm of breast (principal); R92.8 Other abnormal and inconclusive findings on diagnostic imaging of breast
CPT/HCPCS: 76642; 77063; 77067

== ENCOUNTER 2023-01-29 07:00 | Day surgery (SDC) | payer MEDICAID, SELFPAY ==
--- NOTE | 2023-01-28 20:43 | HPE_ITS ---
Assessment and Plan Assessment and plan (1) Screening for colon cancer: Status: Inactive Assessment and plan: We discussed the risks and benefits of screening colonoscopy as well as hemorrhoid banding and she provided informed consent. We will proceed as planned History of Present Illness History of Present Illness Chief Complaint: Screening colonoscopy and possible internal hemorrhoids Narrative: Caridad is a 57 year old woman who is undergoing her first screening colonoscopy. She also describes a grade 3 internal hemorrhoid. PFSH All Active Problems Hormone replacement therapy (HRT) (Acute) Started (Jul 2022) by [facility], Dr. Coleman .. Sleep improved, w/ less nt sweats & hot flashes per chart rvw. 09/2022, ik Post-menopausal bleeding (Acute) D&C 09/2022 for endometrial sampling, [ ] Path.. Endo bx 05/30/22 proliferative endometrium Sono: 7mm endo stripe with no further bleeding. Iron deficiency anemia (Acute ~2013) Transf Sat % indictaes iron, maybe infusion [ ] 09/2022 Asthma (Chronic ~2013) Dysphagia (Acute) Recent choking episodes, difficulty w/ pills. Poor sleep (Acute) Weight gain status post gastric bypass (Acute) Abnormal weight gain (Acute) Elevated TSH (Acute) Nutrition disorder (Acute) BMI 45.0-49.9, adult (Acute) Anemia (Chronic) Xeroderma (Acute) Medical History Back pain Acute on chronic. Wondering about breast reduction. Family history of diabetes mellitus in father Hip pain, right Possible ITB. Hx low back pain. Recent weight gain. History of blood transfusion Due to heavy menses over 3-4 years (x2), in [place]. Hypothyroid Intramural uterine fibroid Joint pain Macromastia Plastics,[facility] URI (upper respiratory infection) ED, 06/2021 ... Hx Asthma Vitamin D deficiency (~2015) Surgical History H/O bilateral breast reduction surgery (~08/26/21) 08/26/21- [facility] Plastic surgery; Becki Phillips. [employer] History of gastric bypass (~2001) Family History Brother Alcohol abuse Anxiety Depression Father Anxiety Depression Diabetes Hypertension Prostate cancer Mother Depression Hypertension Maternal Aunt Diabetes Paternal Aunt Diabetes Maternal Uncle Diabetes Paternal Uncle Diabetes Paternal Grandmother Heart disease Hypertension Paternal Grandfather Heart disease Hypertension Maternal Grandmother Hypertension Paternal Grandfather Hypertension Social History Smoking/Tobacco Use Status: Former Tobacco Use tobacco type: cigarettes Quit Date: 11/02/16 Tobacco: How many years used: 10 Smoking risk assessment performed?: Yes Alcohol Intake: current Alcohol Intake frequency: a few times a month Drug use: Never Substance use type: does not use Adopted: No Caregiver/Support person: No Foster care: No Household members: spouse Housing: house Number of Children: 1 number of grandchildren: 3 Communication Needs: Corrective Lenses Education Level: vocational Do you need help understanding health information?: Never 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, 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 [employer] Pets and animals: Yes Pets and animals: cat(s) Sexually active: Yes Do you think of yourself as: straight/heterosexual Current gender identity: female What is your relationship status?: How often do you talk on the phone with friends or family?: three or more times per week How often do you get together with friends or relatives?: three or more times per week Do you belong to any clubs or organized social groups?: no Panel score (0-1 are the most socially isolated patients): 2 What type of physical activity do you participate in: walking Duration: 30-45 minutes/day Frequency: 3-4 times per week Liliana/Yarsani: Spiritism Special liliana needs: No Seatbelt use: always Helmet use: Yes Helmet use: always Drive intox or ride w/intox cmv driver: No Do you feel safe at home: Yes Do you feel safe in your relationship?: Yes Female Reproductive History Menstrual Age of Menarche: 14 Duration of menses: 3-5 days History History 3 Para 1 Hx # Term Pregnancies Multiple births Hx # Pregnancies Ectopic pregnancies AB induced 2 Hx Number of Living Children 1 AB spontaneous Past Pregnancies Del. Date GA/Weeks # Preg Succ Route Wgt Sex Labor Lgth Anesth esia Location [facility] 11/08/84 40 No Yes vaginal Male [place] Delivery Date: 11/08[birth year] Last Updated by: Vania East[place]lee Pt stated baby born at home Meds Allergies and Home Medications Allergies Allergy/AdvReac Type Severity Reaction Status Date / Time No Known Allergies Allergy Verified 01/29/23 07:33 Home Medications Medication Instructions Recorded Confirmed Type ferrous sulfate 325 mg (65 mg 325 mg PO DAILY 05/23/21 01/28/23 History iron) tablet albuterol sulfate 90 mcg/actuation 2 puff inhalation Q6H PRN 05/24/21 01/28/23 Rx aerosol inhaler (ProAir HFA) shortness of breath or wheezing #8.5 grams vitamin B complex 1 tab PO DAILY 05/24/21 01/28/23 History calcium carbonate 500 mg calcium 500 mg PO DAILY 07/05/21 01/28/23 History (1,250 mg) tablet cholecalciferol (vitamin D3) 50 50 mcg PO DAILY 07/05/21 01/28/23 History mcg (2,000 unit) capsule compressor, for nebulizer #1 ea 08/04/21 01/28/23 Rx ipratropium 0.5 mg-albuterol 3 mg 3 ml inhalation Q6H PRN 08/04/21 01/28/23 Rx (2.5 mg base)/3 mL nebulization wheezing,SOB #30 mL soln estradiol 0.05 mg-norethindrone 1 patch transdermal .twice weekly 07/17/22 01/29/23 Rx 0.25 mg/24 hr semiwkly transderm #8 ea patch ammonium lactate 12 % topical cream 1 applic topical BID #385 grams 08/15/22 01/28/23 Rx naproxen 375 mg tablet,delayed 375 mg PO BID PRN pain and 08/15/22 01/28/23 Rx release (EC-Naproxen) INFLAMMATION #30 tabs gabapentin 100 mg capsule 200 mg PO QHS #90 caps 11/05/22 01/29/23 Rx citalopram 20 mg tablet 20 mg PO HS 01/28/23 01/29/23 History levothyroxine 50 mcg tablet 50 mcg PO HS 01/28/23 01/29/23 History Exam Const General: cooperative and comfortable Orientation: awake and oriented x3 Eyes General: appearance normal, both eyes and all related structures Conjunctivae: conjunctivae normal Sclera: sclerae normal Resp Effort & Inspection: normal respiratory effort and able to speak in complete sentences Cardio Jugular venous pressure: no JVD Rate: regular rate GI Inspection: non-distended Palpation: soft, no guarding, no hernias and nontender Auscultation: normal bowel sounds Skin General skin exam: normal turgor Neuro General: patient alert, patient awake and patient oriented x3 Cognition: normal cognition Extrem Right lower extremity: no edema Left lower extremity: no edema
--- NOTE | 2023-01-28 20:46 | W.COLOREPORT ---
Date of service: 01/29/23 Time of Service: 09:20 Colonoscopy Report Date of procedure: 01/29/23 Pre-op diagnosis general: Screening colonoscopy Post-op diagnosis procedure note: other (External hemorrhoids) Procedure: Colonoscopy Surgeon: Nawaf Chakraborty Anesthesia Type: General:No Airway Estimated blood loss (mL): 0 Pathology: none sent Complications: None Disposition: same day Indications: Caridad is a 57 year old woman who needs her first screening colonoscopy Prep: Miralax/Dulcolax Findings: Hemorrhoids Procedure Description: After the induction of monitored anesthetic care, and with the patient in left lateral decubitus position, I began by performing an external anorectal exam. There are fibrosed external skin tags that seem consistent with external hemorrhoid disease. Additionally, there is an approximately 4 cm long soft nonerythematous appendage that hangs from the external canal. It is easily reducible into the rectal vault. On careful exam, however, the origin of it appears to be below the dentate line. In that regard, anatomically, it appears consistent with some type of external hemorrhoid disease or anal soft tissue mass. Believe that excision of this today would cause a significant amount of perianal pain. Next, I performed a digital rectal exam.? I did opt appreciate any abnormal findings.? Next, I advanced a colonoscope into the rectal vault.? I performed retroflexion.? The reduced soft tissue appendage is apparent in the rectal vault. Again, on careful examination, the pedicle of it seems to extend below the area of traditional internal hemorrhoids.? Using insufflation, I then advanced the colonoscope beyond the rectal folds and into the sigmoid colon before advancing towards the cecum.? The quality of the prep was adequate.? The scope was noted to be in the cecum by identification of the ileocecal valve and appendiceal orifice.? I then began withdrawing the colonoscope using repeated irrigation as necessary for full evaluation of the colonic mucosa. ?Once the scope was withdrawn to the level of the rectum, great care was taken to examine portions of the rectal folds.? Finally, the scope was withdrawn and the patient was brought to the same-day surgery recovery unit as the anesthetic wore off. ?With regards to screening colonoscopy for polyps and colon cancers, the next 1 should be performed at 10 years. The findings and instructions were shared with the patient prior to discharge.
--- NOTE | 2023-01-28 20:47 | W.PM.DSUDISC ---
Date of service: 01/29/23 Time of Service: 09:16 Discharge Plan Disposition Patient Disposition: Home Condition: Good Discharge Details Reason For Visit: Colonoscopy Attending Provider: Nawaf Chakraborty Primary Care Provider: Laura Multani Home Meds and New Rx's Prescriptions: Continued vitamin B complex Tablet 1 tab PO DAILY Patient Comments: B12 and folate albuterol sulfate [ProAir HFA] 90 mcg/actuation HFA aerosol inhaler 2 puff inhalation Q6H PRN (Reason: shortness of breath or wheezing) Qty: 8.5 1RF Rx Instructions: Substitutions or generic OK; dispense as best filled per insurance... cholecalciferol (vitamin D3) 50 mcg (2,000 unit) capsule 50 mcg PO DAILY Rx Instructions: Vit D emulsion (uncertain of dosing - may be higher dose) 07/05/21 calcium carbonate 500 mg calcium (1,250 mg) tablet 500 mg PO DAILY Hold Instructions: Home Medication placed on hold at Doctor's office ipratropium-albuterol 0.5 mg-3 mg(2.5 mg base)/3 mL solution for nebulization 3 ml inhalation Q6H PRN (Reason: wheezing,SOB) Qty: 30 1RF (DME) compressor, for nebulizer Device See Rx Instructions .ROUTE .MEDSUPPLY Qty: 1 0RF Rx Instructions: As directed for wheezing, SOB. Use BID if upper respiratory infectn naproxen [EC-Naproxen] 375 mg tablet,delayed release (DR/EC) 375 mg PO BID PRN (Reason: pain and INFLAMMATION) Qty: 30 1RF Rx Instructions: Trial x 5 days and re-evaluate ammonium lactate 12 % cream 1 applic topical BID Qty: 385 1RF estradiol-norethindrone acet 0.05-0.25 mg/24 hr patch semiweekly 1 patch transdermal .twice weekly Qty: 8 6RF ferrous sulfate 325 mg (65 mg iron) tablet 325 mg PO DAILY gabapentin 100 mg capsule 200 mg PO QHS Qty: 90 1RF Rx Instructions: Continue 200mg; may trial 300mg. citalopram 20 mg tablet 20 mg PO HS Rx Instructions: Note INCREASED dose, for (1) tab daily. levothyroxine 50 mcg tablet 50 mcg PO HS Rx Instructions: Clinical hypothyroid. Discharge Instructions Additional Instructions: jim Mclean screening colonoscopy was negative for any kind of polyps or tumors. You should have another colonoscopy in 10 years to reduce your chances of from colon cancer. You do have a modest amount of hemorrhoid disease. The larger hemorrhoid that we talked about before the procedure is too large to be banded. More importantly, it appears to arise from the external hemorrhoid complex. In that regards, I do have some concerns that surgical excision will be painful. Therefore, I did not treat this today. The more comfortable approach will be surgical removal after appropriate anesthesia has been established. It would be a same-day procedure, and you would not need to stay in the hospital overnight. But we will need to make some arrangements to ensure that you have appropriate coverage and treatment for your pain after the procedure. Like we talked about in the recovery unit, please call the office to schedule a visit. I will let them know that you will be calling. We can go over the operative plan at that point, and make proper arrangements to move forward. 1. If tolerated, consume a soft, low fiber diet for 1-2 days. [address] Do not drive, drink alcohol, operate machinery, make critical decisions, or do activities that require coordination or balance for 24 hours. 3. Because air was put into your colon during the procedure, expelling air from your rectum (passing gas or farting) is normal. 4. You may not have a bowel movement for 1-3 days because of the colonoscopy prep. This is normal. 5. Go directly to the emergency room if you notice any of the following: Develop chills (warm to touch), or if you have a thermometer and your temperature is above 101 Difficulty breathing or difficultly swallowing Persistent vomiting Severe abdominal pain, other than gas cramps Severe chest pain Black, tarry stools Any bleeding ? exceeding one tablespoon 6. Call your physician if the site where your intravenous was started becomes red, swollen, painful, and warm to touch. 7. Your physician has reviewed your pre-procedure medications. Please continue to take those medications as previously ordered. You will be given specific information/education regarding any changes to your medications before leaving. Activity:: Activity as Tolerated Diet:: As Tolerated Discharge Orders Discharge Orders: Discharge Order (Routine); Ordered 01/28/23 Ordered By: Nawaf Chakraborty DS: Diagnosis Discharge Diagnosis (1) Screening for colon cancer: Status: Inactive Asessment and Plan: Negative screening colonoscopy. Caridad needs another one in 10 years.
[2023-01-29 07:33] VITALS: BP 116/61; PULSE 69; RESP 16; TEMP 36.3; O2SAT 100
[2023-01-29] MEDS: Lactated Ringers 1,000 ML 80 ML IV (07:50)
--- NOTE | 2023-01-29 08:23 | ANES.PREOP_ITS ---
General Info Date of Service Date Performed: 01/29/23 Height: 5 ft 4 in Weight: 117.6 kg Body Mass Index (BMI): 44.4 Surgical Procedure: Operation Date: 01/29/23 08:10 Proposed Procedure Side Surgeon p Colonoscopy Nawaf Chakraborty MD s Possible Hemorrhoid Banding Nawaf Chakraborty MD Meds Allergies and Home Medications Allergies Allergy/AdvReac Type Severity Reaction Status Date / Time No Known Allergies Allergy Verified 01/29/23 07:33 Home Medication Medication Instructions Recorded ferrous sulfate 325 mg (65 mg 325 mg PO DAILY 05/23/21 iron) tablet albuterol sulfate 90 mcg/actuation 2 puff inhalation Q6H PRN 05/24/21 aerosol inhaler (ProAir HFA) shortness of breath or wheezing #8.5 grams vitamin B complex 1 tab PO DAILY 05/24/21 calcium carbonate 500 mg calcium 500 mg PO DAILY 07/05/21 (1,250 mg) tablet cholecalciferol (vitamin D3) 50 50 mcg PO DAILY 07/05/21 mcg (2,000 unit) capsule compressor, for nebulizer #1 ea 08/04/21 ipratropium 0.5 mg-albuterol 3 mg 3 ml inhalation Q6H PRN 08/04/21 (2.5 mg base)/3 mL nebulization wheezing,SOB #30 mL soln estradiol 0.05 mg-norethindrone 1 patch transdermal .twice weekly 07/17/22 0.25 mg/24 hr semiwkly transderm #8 ea patch ammonium lactate 12 % topical cream 1 applic topical BID #385 grams 08/15/22 naproxen 375 mg tablet,delayed 375 mg PO BID PRN pain and 08/15/22 release (EC-Naproxen) INFLAMMATION #30 tabs gabapentin 100 mg capsule 200 mg PO QHS #90 caps 11/05/22 citalopram 20 mg tablet 20 mg PO HS 01/28/23 levothyroxine 50 mcg tablet 50 mcg PO HS 01/28/23 Current Visit Medications: Current Medications Generic Name Dose Route Start Last Admin Trade Name Freq PRN Reason Stop Dose Admin Hyoscyamine Sulfate 0.125 mg 01/28/23 20:48 Hyoscyamine 0.125 Mg Sl/Oral/Chew SL DIRECTED PRN Ringer's Solution 1,000 mls @ 80 mls/hr 01/29/23 06:00 01/29/23 07:50 IV 02/27/23 23:59 80 mls/hr INFUSION CYRUS Administration IV Miscellaneous Supplies 1 each 01/29/23 06:00 Iv Access IV 02/27/23 23:59 DIRECTED CYRUS Ondansetron HCl 4 mg 01/28/23 20:48 Ondansetron 4 Mg/2 Ml Vial IVP Q4H PRN PRN Nausea / Vomiting Sodium Chloride 0 ml 01/29/23 06:00 Normal Saline Flush 10 Ml Syr IV 02/27/23 23:59 PRN PRN Sodium Chloride 0 ml 01/29/23 06:00 Normal Saline 10 Ml Vial IJ 02/27/23 23:59 DIRECTED PRN Sterile Water 0 ml 01/29/23 06:00 Water,Injection,Sterile 10 Ml Vial IJ 02/27/23 23:59 DIRECTED PRN PFSH Active Problems Active Problems: Problem Status Onset Code Hormone replacement therapy (HRT) Z79.890 Post-menopausal bleeding N95.0 Iron deficiency anemia ~2013 D50.9 Asthma ~2013 J45.909 Dysphagia R13.10 Poor sleep Z72.820 Weight gain status post gastric bypass R63.5, Z98.84 Abnormal weight gain R63.5 Elevated TSH R79.89 Nutrition disorder E63.9 BMI 45.0-49.9, adult Z68.42 Anemia D64.9 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 Wondering about breast reduction. Family history of diabetes mellitus in father Hip pain, right Possible ITB. Hx low back pain. Recent weight gain. History of blood transfusion Due to heavy menses over 3-4 years (x2), in [place]. Hypothyroid Intramural uterine fibroid Joint pain Macromastia Plastics,[facility] [place] (upper respiratory infection) ED, 06/2021 ... Hx Asthma Vitamin D deficiency (~2015) Surgical History Surgical History H/O bilateral breast reduction surgery (~08/26/21) 08/26/21- [facility] [place] Plastic surgery; Becki Phillips. [employer] History of gastric bypass (~2001) Tobacco Smoking/Tobacco Use Status: Former Tobacco Use Passive smoking exposure: No Alcohol Alcohol Intake: current Alcohol intake frequency: a few times a month Substance Use Substance use: Never Substance use type: does not use Prental History History 3 Para 1 Hx # Term Pregnancies Multiple births Hx # Pregnancies Ectopic pregnancies AB induced 2 Hx Number of Living Children 1 AB spontaneous Past Pregnancies Del. Date GA/Weeks # Preg Succ Route Wgt Sex Labor Lgth Anesth esia Location Prov Complic 11/08/84 40 No Yes vaginal Male [place] Delivery Date: 11/08/84 Last Updated by: Vania Bhandari Pt stated baby born at home Vital Signs and Lab Results Vital Signs Most Recent Vital Signs in EMR: Most Recent Vital Signs Temp Pulse Resp BP Pulse Ox 36.3 C L 69 16 116/61 100 01/29/23 07:33 01/29/23 07:33 01/29/23 07:33 01/29/23 07:33 01/29/23 07:33 Lab Results Blood Type / Crossmatch: No Data to Display Complete Blood Count: No Data to Display Complete Metabolic Panel: No Data to Display Liver Function Panel: No Data to Display Coagulation Panel: No Data to Display Cardiac Panel: No Data to Display Arterial Blood Gas: No Data to Display Venous Blood Gas: No Data to Display Pancreas Panel: No Data to Display Thyroid Panel: No Data to Display Infectious Disease: No Data to Display Blood Cultures: No Data to Display Toxicology Panel: No Data to Display Anesthesia Assessment and Plan Anesthesia History Personal History: No History of Anesthesia Complications Family History: No Family History of Anesthesia Complications Exercise Tolerance Exercise Tolerance: Metabolic Equivalents>4 Pertinent Negatives Pertinent Negatives: No Symptoms of GERD and No Major Cardiovascular Symptoms or Complaints Cardiac & Pulmonary Exam Cardiac Exam: Normal S1/S2 Heart Sounds Pulmonary Exam: Clear Bilateral Breath Sounds Implantable Cardiac Device Does patient have a Pacemaker or an ICD?: No Airway Exam Known Difficult Airway: No Mallampati Class: 2 Mouth Opening: Normal (> 3cm) Thyromental Distance: Greater than 3 cm Neck Range of Motion: Full ROM Neck Circumference: Normal Teeth Condition: Normal Dentition ASA Classification ASA Score: ASA 3 Emergency Case?: No NPO Status NPO Status: NPO Clears >2 hours, Solids >8 hours Anesthesia Plan Resuscitation Status: Full Code Anesthesia Technique: General Anesthesia Airway Planned: Natural Airway Monitors Used: Standard Monitors
[2023-01-29 08:27] VITALS: BMI 44.4
[2023-01-29 09:14] VITALS: BP 103/68; PULSE 65; RESP 18; TEMP 36.4; O2SAT 98
[2023-01-29 09:45] VITALS: BP 114/65; PULSE 60; RESP 18; TEMP 36.5; O2SAT 98
--- NOTE | 2023-01-29 10:29 | W.ANESPOSTOP ---
Postoperative Evaluation Date, Time and Location Date Performed: 01/29/23 Time Performed: 09:40 Patient Location: Day Surgery Unit Vital Signs Most Recent Imported Vital Signs: Most Recent Vital Signs Temp Pulse Resp BP Pulse Ox 36.5 C 60 18 114/65 98 01/29/23 09:45 01/29/23 09:45 01/29/23 09:45 01/29/23 09:45 01/29/23 09:45 Pain Score Most Recent Pain Score: Most Recent Pain Score Pain Level 0 01/29/23 09:45 Assessment Mental Status: Awake (Alert & Oriented to Patient Baseline) Airway and Respiratory Function: Patent airway with normal (patient baseline) respiratory exam Cardiovascular Function: Hemodynamically Stable Hydration Status: Adequately Hydrated Nausea & Vomiting: No Nausea or Vomiting Pain: Pt. Denies Any Pain Peripheral Nerve Block: Patient did not receive a nerve block
== END 2023-01-29 10:02 | disposition home or self-care (01) ==
PROVIDERS: PCP Student in an Organized Health Care Education/Training Program; Visit Provider Surgery
PROC: 0DJD8ZZ Inspection of Lower Intestinal Tract, Via Natural or Artificial Opening Endoscopic (ICD-10-PCS; CPT 45378; principal; 2023-01-29 08:00)
DX: Z12.11 Encounter for screening for malignant neoplasm of colon (principal); K64.4 Residual hemorrhoidal skin tags
CPT/HCPCS: 45378; J2704

== ENCOUNTER 2023-04-10 06:12 | Day surgery (SDC) | payer BC, SELFPAY ==
--- NOTE | 2023-04-09 20:02 | W.PM.DSUDISC ---
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 Do not use Tylenol while taking this medication. Do not drive while using this medication. Continued vitamin B complex Tablet 1 tab PO DAILY Patient Comments: B12 and folate albuterol sulfate [ProAir HFA] 90 mcg/actuation HFA aerosol inhaler 2 puff inhalation Q6H PRN (Reason: shortness of breath or wheezing) Qty: 8.5 1RF Rx Instructions: Substitutions or generic OK; dispense as best filled per insurance... cholecalciferol (vitamin D3) 50 mcg (2,000 unit) capsule 50 mcg PO DAILY Rx Instructions: Vit D emulsion (uncertain of dosing - may be higher dose) 07/05/21 calcium carbonate 500 mg calcium (1,250 mg) tablet 500 mg PO DAILY Hold Instructions: Home Medication placed on hold at Doctor's office ipratropium-albuterol 0.5 mg-3 mg(2.5 mg base)/3 mL solution for nebulization 3 ml inhalation Q6H PRN (Reason: wheezing,SOB) Qty: 30 1RF (DME) compressor, for nebulizer Device See Rx Instructions .ROUTE .MEDSUPPLY Qty: 1 0RF Rx Instructions: As directed for wheezing, SOB. Use BID if upper respiratory infectn naproxen [EC-Naproxen] 375 mg tablet,delayed release (DR/EC) 375 mg PO BID PRN (Reason: pain and INFLAMMATION) Qty: 30 1RF Rx Instructions: Trial x 5 days and re-evaluate ammonium lactate 12 % cream 1 applic topical BID Qty: 385 1RF estradiol-norethindrone acet 0.05-0.25 mg/24 hr patch semiweekly 1 patch transdermal .twice weekly Qty: 8 6RF ferrous sulfate 325 mg (65 mg iron) tablet 325 mg PO DAILY gabapentin 100 mg capsule 200 mg PO QHS Qty: 90 1RF Rx Instructions: Continue 200mg; may trial 300mg. citalopram 20 mg tablet 20 mg PO HS Rx Instructions: Note INCREASED dose, for (1) tab daily. levothyroxine 50 mcg tablet 50 mcg PO HS Rx Instructions: Clinical hypothyroid. Discharge Instructions Additional Instructions: 1. Resume all of your medications. 2. Use Percocet as needed for severe pain. 3. Obtain Preparation H from the pharmacy. Apply a pea-sized dab of ointment to the anus twice daily, and before and after each bowel movement. Tucks pads (or any medication that contains witch angeline) can be used for itching. 4. Obtain a sitz bath from any pharmacy. Soak for 10-15 minutes in warm water, warm water mixed with half a cup of baking soda, or Epson salts after each bowel movement, or up to 5 times per day as needed for pain. 5. Okay to use ibuprofen over the counter as needed. 6. Leave bandage in place for 24 hours, then remove. 7. Shower with warm soapy water. Pat dry. Use a menstrual pad if needed to protect your clothing. 8. Expect to have a little bit of blood with your bowel movements over the next few days. 9. No heavy lifting until I see you in the office. 10.Call the office (or go directly to the emergency room after hours) if you notice any of the following: Develop chills (warm to touch), or if you have a thermometer and your temperature is above 101 Difficulty breathing or difficultly swallowing Persistent vomiting Any bleeding ? exceeding one tablespoon 11. Call your physician if the site where your intravenous was started becomes red, swollen, painful, and warm to touch. Activity:: Activity as Tolerated Diet:: As Tolerated Discharge Orders Discharge Orders: Discharge Order (Routine); Ordered 04/09/23 Ordered By: Nawaf Chakraborty DS: Diagnosis Discharge Diagnosis (1) Mass of anus: Status: Acute Asessment and Plan: Follow-up on April 15 at 8 AM
--- NOTE | 2023-04-09 20:05 | W.PM.OP ---
Date of service: 04/10/23 Time of Service: 08:18 Operative Note Operative Note DATE OF PROCEDURE: 04/10/23 PRE-OP DIAGNOSIS: Anal Mass POST-OP DIAGNOSIS: same PROCEDURE: Anorectal exam under anesthesia with excision of anal mass SURGEON: Nawaf Chakraborty ANESTHESIA TYPE: Local By Surgeon and MAC Refer to Anesthesia Record ESTIMATED BLOOD LOSS: 10 PATHOLOGY: other (Anal mass) COMPLICATIONS: None Patient was transported to: PACU Patient's condition: stable Indications: Caridad is a 58-year-old woman who recently underwent screening colonoscopy. At that time, she was found of a pedunculated mass arising from just below the dentate line. Upon further questioning, it sounds like this is been present for many years. She has always thought it was a hemorrhoid. 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 Perineum and anus were prepped and draped in the usual fashion. I began with a digital rectal examination. There was some mild evidence of external hemorrhoids. As previously mentioned, there was a fingerlike slightly pedunculated mass arising from just around the dentate line. The overlying mucosa was normal-appearing. There was no ulceration. There is no bleeding. There was no other evidence of anorectal pathology such as condyloma. Next, I infiltrated the area with local anesthetic. I also performed a left-sided ischial nerve block. I then used Bovie electrocautery to incise the overlying mucosa. The underside was dissected staying well superficial to the sphincter complex. There was a small amount of vasculature associated with it, but it did not seem consistent with a classic hemorrhoid. Using careful dissection and electrocautery, I divided the base. There is no vascular pedicle to close. The incision and surgical site were hemostatic. I closed the overlying mucosa with interrupted Vicryl stitches. She tolerated the procedure fine was transferred to the postanesthesia recovery unit for further monitoring.
[2023-04-10 06:44] VITALS: BP 121/77; PULSE 70; RESP 16; TEMP 36.3; O2SAT 97
[2023-04-10] MEDS: Celecoxib 200 MG CAP PO (06:55)
[2023-04-10] MEDS: Gabapentin 300 MG CAP 600 MG PO (06:56)
[2023-04-10] MEDS: Lactated Ringers 1,000 ML 80 ML IV (07:09)
[2023-04-10 07:19] VITALS: BMI 42.9
[2023-04-10] MEDS: Acetaminophen 500 MG TAB 1000 MG PO (07:19)
--- NOTE | 2023-04-10 07:19 | ANES.PREOP_ITS ---
General Info Date of Service Date Performed: 04/10/23 Height: 5 ft 4 in Weight: 113.398 kg Body Mass Index (BMI): 42.9 Surgical Procedure: Operation Date: 04/10/23 07:40 Proposed Procedure Side Surgeon p Exam Under Anesthesia Nawaf Chakraborty MD s Hemorrhoidectomy Nawaf Chakraborty MD Meds Allergies and Home Medications Allergies Allergy/AdvReac Type Severity Reaction Status Date / Time No Known Allergies Allergy Verified 04/08/23 14:53 Home Medication Medication Instructions Recorded ferrous sulfate 325 mg (65 mg 325 mg PO DAILY 05/23/21 iron) tablet albuterol sulfate 90 mcg/actuation 2 puff inhalation Q6H PRN 05/24/21 aerosol inhaler (ProAir HFA) shortness of breath or wheezing #8.5 grams vitamin B complex 1 tab PO DAILY 05/24/21 calcium carbonate 500 mg calcium 500 mg PO DAILY 07/05/21 (1,250 mg) tablet cholecalciferol (vitamin D3) 50 50 mcg PO DAILY 07/05/21 mcg (2,000 unit) capsule compressor, for nebulizer #1 ea 08/04/21 ipratropium 0.5 mg-albuterol 3 mg 3 ml inhalation Q6H PRN 08/04/21 (2.5 mg base)/3 mL nebulization wheezing,SOB #30 mL soln estradiol 0.05 mg-norethindrone 1 patch transdermal .twice weekly 07/17/22 0.25 mg/24 hr semiwkly transderm #8 ea patch ammonium lactate 12 % topical cream 1 applic topical BID #385 grams 08/15/22 naproxen 375 mg tablet,delayed 375 mg PO BID PRN pain and 08/15/22 release (EC-Naproxen) INFLAMMATION #30 tabs gabapentin 100 mg capsule 200 mg PO QHS #90 caps 11/05/22 citalopram 20 mg tablet 20 mg PO HS 01/28/23 levothyroxine 50 mcg tablet 50 mcg PO HS 01/28/23 Current Visit Medications: Current Medications Generic Name Dose Route Start Last Admin Trade Name Freq PRN Reason Stop Dose Admin Acetaminophen 1,000 mg 04/10/23 06:00 Acetaminophen 500 Mg Tab PO 04/10/23 23:59 PREOP CYRUS Celecoxib 200 mg 04/10/23 06:00 Celecoxib 200 Mg Cap PO 04/10/23 23:59 PREOP CYRUS Gabapentin 600 mg 04/10/23 06:00 Gabapentin 300 Mg Cap PO 04/10/23 23:59 PREOP CYRUS Hydromorphone HCl 0.2 mg 04/09/23 20:01 Hydromorphone 2 Mg/Ml Syr IVP 05/09/23 20:00 Q1H PRN PRN Ringer's Solution 1,000 mls @ 80 mls/hr 04/10/23 06:00 IV 04/10/23 23:59 INFUSION CYRUS IV Miscellaneous Supplies 1 each 04/10/23 06:00 Iv Access IV 04/10/23 23:59 DIRECTED CYRUS Oxycodone/Acetaminophen 1 tab 04/09/23 20:01 Oxycodone 5 Mg/Acetaminophen 325 Mg Tab PO 05/09/23 20:00 Q4H PRN PRN Pain Sodium Biphosphate/Sodium Phosphate 133 ml 04/10/23 06:00 04/10/23 06:54 Na Phosphate Enema 133 Ml Btl ND 04/10/23 16:00 133 ml PREOP CYRUS Administration Sodium Chloride 0 ml 04/10/23 06:00 Normal Saline Flush 10 Ml Syr IV 04/10/23 23:59 PRN PRN Sodium Chloride 0 ml 04/10/23 06:00 Normal Saline 10 Ml Vial IJ 04/10/23 23:59 DIRECTED PRN Sterile Water 0 ml 04/10/23 06:00 Water,Injection,Sterile 10 Ml Vial IJ 04/10/23 23:59 DIRECTED PRN PFSH Active Problems Active Problems: Problem Status Onset Code Mass of anus K62.89 Hormone replacement therapy (HRT) Z79.890 Post-menopausal bleeding N95.0 Iron deficiency anemia ~2013 D50.9 Asthma ~2013 J45.909 Dysphagia R13.10 Poor sleep Z72.820 Weight gain status post gastric bypass R63.5, Z98.84 Abnormal weight gain R63.5 Elevated TSH R79.89 Nutrition disorder E63.9 BMI 45.0-49.9, adult Z68.42 Anemia D64.9 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 Wondering about breast reduction. Family history of diabetes mellitus in father Hip pain, right Possible ITB. Hx low back pain. Recent weight gain. History of blood transfusion Due to heavy menses over 3-4 years (x2), in [place]. Hypothyroid Intramural uterine fibroid Joint pain Macromastia Plastics,[facility] [place] (upper respiratory infection) ED, 06/2021 ... Hx Asthma Vitamin D deficiency (~2015) Surgical History Surgical History H/O bilateral breast reduction surgery (~08/26/21) 08/26/21- [facility] [place] Plastic surgery; Becki Phillips. 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 Date GA/Weeks # Preg Succ Route Wgt Sex Labor Lgth Anesth esia Location [facility] Complic 11/08/84 40 No Yes vaginal Male [place] Delivery Date: 11/08/84 Last Updated by: Vania Bhandari Pt stated baby born at home Vital Signs and Lab Results Lab Results Blood Type / Crossmatch: No Data to Display Complete Blood Count: No Data to Display Complete Metabolic Panel: No Data to Display Liver Function Panel: No Data to Display Coagulation Panel: No Data to Display Cardiac Panel: No Data to Display Arterial Blood Gas: No Data to Display Venous Blood Gas: No Data to Display Pancreas Panel: No Data to Display Thyroid Panel: No Data to Display Infectious Disease: No Data to Display Blood Cultures: No Data to Display Toxicology Panel: No Data to Display Anesthesia Assessment and Plan Anesthesia History Personal History: No History of Anesthesia Complications Family History: No Family History of Anesthesia Complications Exercise Tolerance Exercise Tolerance: Metabolic Equivalents>4 Pertinent Negatives Pertinent Negatives: No Symptoms of GERD Cardiac & Pulmonary Exam Cardiac Exam: Normal S1/S2 Heart Sounds Pulmonary Exam: Clear Bilateral Breath Sounds Implantable Cardiac Device Does patient have a Pacemaker or an ICD?: No Airway Exam Known Difficult Airway: No Mallampati Class: 2 Mouth Opening: Normal (> 3cm) Thyromental Distance: Greater than 3 cm Neck Range of Motion: Full ROM Neck Circumference: Normal Teeth Condition: Normal Dentition ASA Classification ASA Score: ASA 2 Emergency Case?: No NPO Status NPO Status: NPO Clears >2 hours, Solids >8 hours Anesthesia Plan Resuscitation Status: Full Code Anesthesia Technique: General Anesthesia Airway Planned: Natural Airway Monitors Used: Standard Monitors
--- NOTE | 2023-04-10 07:54 | BOWEL_PTH ---
PATIENT: Caridad Palacios LOC: [facility] U#:[id number] AGE/SX: 58/F ROOM: RE04/10/[address]: Nawaf Chakraborty MD : [id number] BED: DIS: 04/10/2023 SPEC #: [id number] RECD: 04/10/23 12:33 STATUS: KITA RETong #: [id number] DAI: 04/10/23 07:[address]: Nawaf Chakraborty DEPT: Surgical Specimen RECD BY: Isabelle Roa ENTERED: 04/10/23 12:34 SP TYPE: Bowel OTHR DR: Laura Multani DO Tissues: 1 - BIOPSY BOWEL Procedures: GROSS AND MICRO LEVEL 4 Comments: [id number]
[2023-04-10] MEDS: Lidocaine 1% Pres-Free W/EPI 1/200,000 30 ML VIAL (07:59)
[2023-04-10 08:09] VITALS: BP 90/51; PULSE 72; RESP 18; TEMP 36.2; O2SAT 98
--- NOTE | 2023-04-10 08:16 | W.ANESPOSTOP ---
Postoperative Evaluation Date, Time and Location Date Performed: 04/10/23 Time Performed: 08:17 Patient Location: Day [facility] Unit Vital Signs Most Recent Imported Vital Signs: Most Recent Vital Signs Temp Pulse Resp BP Pulse Ox 36.3 C L 70 16 121/77 97 04/10/23 06:44 04/10/23 06:44 04/10/23 06:44 04/10/23 06:44 04/10/23 06:44 Pain Score Most Recent Pain Score: Most Recent Pain Score Pain Level 0 04/10/23 06:44 Assessment Mental Status: Awake (Alert & Oriented to Patient Baseline) Airway and Respiratory Function: Patent airway with normal (patient baseline) respiratory exam Cardiovascular Function: Hemodynamically Stable Hydration Status: Adequately Hydrated Nausea & Vomiting: No Nausea or Vomiting Pain: Pt. Denies Any Pain Peripheral Nerve Block: Patient did not receive a nerve block
[2023-04-10 08:57] VITALS: BP 114/95; PULSE 62; RESP 16; TEMP 35.6; O2SAT 98
== END 2023-04-10 09:23 | disposition home or self-care (01) ==
PROVIDERS: PCP Student in an Organized Health Care Education/Training Program; Visit Provider Surgery
PROC: (CPT 46922; principal; 2023-04-10 07:30)
PROC: (CPT 46922; 2023-04-10 07:30)
DX: K62.0 Anal polyp (principal); K64.4 Residual hemorrhoidal skin tags; J45.909 Unspecified asthma, uncomplicated; E03.9 Hypothyroidism, unspecified; D64.9 Anemia, unspecified
CPT/HCPCS: 46922; 88305; J1100; J1885; J2405

== ENCOUNTER 2023-04-27 03:13 | Outpatient (CLI) | payer BC, SELFPAY ==
[2023-04-27 17:08] LABS: Abs Immature Grans 0.02 10^3/uL (0.0-0.06); Absolute Basophil Count 0.04 10^3/uL (0.0-0.2); Absolute Eosinophil Count 0.07 10^3/uL (0.0-0.7); Absolute Monocyte Count 0.34 10^3/uL (0.1-0.8); Absolute Neutrophil Count 3.83 10^3/uL (1.2-6.7); Basophils % 0.7; Eosinophils % 1.3; HCT 32.8 % (36.0-46.0); Immature Grans % 0.4; Lymphocytes % 23.2; MCH 23.3 pg (27.0-33.0); MCHC 30.5 % (32.0-36.0); MCV 77 fL (80-95); MPV 11.6 fL (8.0-11.0); Monocytes % 6.1; Neutrophils % 68.3; Platelet Count 226 10^3/uL (130-400); RBC 4.29 10^6/uL (3.93-5.22); RDW 15.4 % (11.7-14.6)
[2023-04-27 19:23] LABS: ALT 19 U/L (14-59); AST 13 U/L (15-37); Albumin 3.4 g/dL (3.4-5.0); Alkaline Phosphatase 127 U/L (46-116); Anion Gap 15.3 mmol/L (3-11); BUN 15 mg/dL (7-18); Bilirubin, Total 0.4 mg/dL (0.2-1.0); CO2 18.7 mmol/L (21.0-32.0); Calcium 8.2 mg/dL (8.5-10.1); Chloride 104 mmol/L (98-107); Estimated GFR 65.71 (mL/min/1.73m2); Ferritin 5 ng/mL (8-252); Glucose 218 mg/dL (74-106); Potassium 3.6 mmol/L (3.5-5.1); Sodium 138 mmol/L (136-145); TSH (W/Ref FT4) 2.05 uIU/mL (0.36-3.74); Total Protein 7.4 g/dL (6.4-8.2)
[2023-04-27 19:40] LABS: Iron 17 ug/dL (50-170); Total Iron Binding Capacity 441 ug/dL (250-450); Transferrin Sat 4 % (15-50)
[2023-04-27 20:31] LABS: Vitamin D 25 Total 15.1 ng/mL (30-100)
[2023-05-07 01:26] LABS: Cortisol, Free 0.373 mcg/dL; PM Cortisol 11 mcg/dL (2-14)
== END 2023-04-27 03:14 | disposition home or self-care (01) ==
LOC: LBO 03:13
PROVIDERS: PCP Student in an Organized Health Care Education/Training Program; Visit Provider Student in an Organized Health Care Education/Training Program
DX: D50.9 Iron deficiency anemia, unspecified (principal); N95.0 Postmenopausal bleeding; Z91.89 Other specified personal risk factors, not elsewhere classified; D64.9 Anemia, unspecified; E63.9 Nutritional deficiency, unspecified; G25.81 Restless legs syndrome; N93.9 Abnormal uterine and vaginal bleeding, unspecified
CPT/HCPCS: 36415; 80053; 82306; 82530; 82533; 82728; 83540; 83550; 84443; 85025

== ENCOUNTER 2023-05-29 01:06 | Outpatient (RCR) | payer BC, SELFPAY ==
[2023-05-15] MEDS: Normal Saline Flush 10 ML SYR IVP (07:39)
[2023-05-15] MEDS: IRON SUCROSE COMPLEX 100 MG in Normal Saline 100 ML 420 MG IVPB (08:01)
[2023-05-22] MEDS: IRON SUCROSE COMPLEX 100 MG in Normal Saline 100 ML 420 MG IVPB (07:58)
[2023-05-22] MEDS: Normal Saline Flush 10 ML SYR IVP (08:02)
[2023-05-29] MEDS: Normal Saline Flush 10 ML SYR IVP (08:20)
[2023-05-29] MEDS: IRON SUCROSE COMPLEX 100 MG in Normal Saline 100 ML 420 MG IVPB (08:20)
== END 2023-06-01 23:59 | disposition home or self-care (01) ==
LOC: INF 01:06
PROVIDERS: PCP Student in an Organized Health Care Education/Training Program; Visit Provider Student in an Organized Health Care Education/Training Program
DX: D50.9 Iron deficiency anemia, unspecified (principal)
CPT/HCPCS: 96365; J1756

== ENCOUNTER 2023-06-26 00:50 | Outpatient (RCR) | payer BC, SELFPAY ==
[2023-06-05] MEDS: IRON SUCROSE COMPLEX 100 MG in Normal Saline 100 ML 420 MG IVPB (07:38)
[2023-06-05] MEDS: Normal Saline Flush 10 ML SYR IVP (07:39)
[2023-06-12] MEDS: Normal Saline Flush 10 ML SYR IVP (08:04)
[2023-06-12] MEDS: IRON SUCROSE COMPLEX 100 MG in Normal Saline 100 ML 420 MG IVPB (08:04)
[2023-06-26] MEDS: IRON SUCROSE COMPLEX 100 MG in Normal Saline 100 ML 420 MG IVPB (07:59)
[2023-06-26] MEDS: Normal Saline Flush 10 ML SYR IVP (08:00)
== END 2023-07-02 23:59 | disposition home or self-care (01) ==
LOC: INF 00:50
PROVIDERS: PCP Student in an Organized Health Care Education/Training Program; Visit Provider Student in an Organized Health Care Education/Training Program
DX: D50.9 Iron deficiency anemia, unspecified (principal)
CPT/HCPCS: 96365; J1756

== ENCOUNTER 2023-07-10 01:26 | Outpatient (RCR) | payer BC, SELFPAY | END 2023-08-01 23:59 | disposition home or self-care (01) | LOC: INF 01:26 | PROVIDERS: PCP Student in an Organized Health Care Education/Training Program; Visit Provider Student in an Organized Health Care Education/Training Program ==

== ENCOUNTER 2024-06-27 15:34 | Emergency (ER) | payer SELFPAY ==
[2024-06-27 15:42] VITALS: PULSE 91; RESP 16; TEMP 36.8; O2SAT 98
[2024-06-27 16:10] VITALS: BP 157/74; PULSE 72; RESP 22; O2SAT 95
[2024-06-27 16:30] VITALS: PULSE 76; RESP 24; RESP 5; O2SAT 98
[2024-06-27] MEDS: Albuterol/Ipratropium 3 ML UPD VIAL UPD (16:30)
[2024-06-27] MEDS: predniSONE 20 MG TAB 40 MG PO (16:33)
--- NOTE | 2024-06-27 17:02 | DI.RAD_ITS ---
Exam(s) XR CHEST 2V PA LATERAL EXAM: XR CHEST 2V PA LATERAL CLINICAL HISTORY: SOB. TECHNIQUE: 2D digital imaging was performed. COMPARISON: CR,XR XR PORTABLE CHEST AP from 06/23/2021 FINDINGS: 2 views: Heart size is normal. The mediastinum is not widened. Lungs are clear. No infiltrates nor pleural effusions. IMPRESSION: No acute pulmonary findings. DATA REPOSITORY: RADIATION DOSE DELIVERED:
[2024-06-27 17:11] VITALS: BP 112/69; PULSE 75; RESP 17; TEMP 36.6; O2SAT 100
[2024-06-27 17:16] LABS: COVID-19 PCR Negative (Negative); Influenza A PCR Negative (Negative); Influenza B PCR Negative (Negative); RSV PCR Negative (Negative)
[2024-06-27 17:18] LABS: Source NASOPHARYNX
--- NOTE | 2024-06-27 17:52 | W.ED.GENAD ---
Discharge Plan Disposition Patient Disposition: Home Condition: Stable Discharge Details Clinical Impression: Cough, Upper respiratory infection, Reactive airway disease with acute exacerbation Primary Care Provider: Laura Multani ED Provider: Cristela Romo Home Meds and New Rx's Prescriptions: New prednisone 20 mg tablet 40 mg PO DAILY 4 Days Qty: 8 0RF Rx Instructions: Start 06/28/2024 benzonatate 200 mg capsule 200 mg PO TID PRNQty: 14 0RF No Action (DME) compressor, for nebulizer Device See Rx Instructions .ROUTE .MEDSUPPLY Qty: 1 0RF Rx Instructions: As directed for wheezing, SOB. Use BID if upper respiratory infectn naproxen [EC-Naproxen] 375 mg tablet,delayed release (DR/EC) 375 mg PO BID PRN (Reason: pain and INFLAMMATION) Qty: 30 1RF Rx Instructions: Trial x 5 days and re-evaluate albuterol sulfate [ProAir HFA] 90 mcg/actuation HFA aerosol inhaler 2 puff inhalation Q6H PRN (Reason: shortness of breath or wheezing) Qty: 8.5 1RF Rx Instructions: Substitutions or generic OK; dispense as best filled per insurance... estradiol-norethindrone acet 0.05-0.25 mg/24 hr patch semiweekly 1 patch transdermal .twice weekly Qty: 8 6RF Ozempic 0.25 mg or 0.5 mg (2 mg/3 mL) pen injector 0.25 mg subcut QWEEK Qty: 3 1RF Rx Instructions: for 4 weeks, then planned increase to 0.5mg cholecalciferol (vitamin D3) 250 mcg (10,000 unit) capsule 250 mcg PO QWEEK Qty: 10 1RF Rx Instructions: High-dose weekly Vit D, recheck ~ 16 weeks Wegovy 0.25 mg/0.5 mL pen injector 0.25 mg subcut QWEEK Qty: 2 1RF Rx Instructions: administer weeks 1 through 4 of therapy Venofer 100 mg iron/5 mL solution 100 mg IV QWEEK Qty: 50 1RF Rx Instructions: Administer @ [facility] Rm per guidelines Alive Premium 120 mcg-25 mg- 66.7 mg tablet,chewable 1 tab PO DAILY Qty: 90 3RF Rx Instructions: ANy chewable or gummy substitute is ok Wegovy 1 mg/0.5 mL pen injector 1 mg subcut QWEEK Qty: 2 1RF Rx Instructions: administer weeks 9 through 12 of therapy-- est for July 13 levothyroxine 50 mcg tablet 50 mcg PO HS Qty: 90 1RF Rx Instructions: Re-try: clinical hypothyroid. semaglutide (weight loss) 1.7 mg/0.75 mL pen injector 1.7 mg subcut QWEEK Rx Instructions: administer weeks 13 through 16 of therapy bupropion HCl 150 mg tablet sustained-release 12 hr 150 mg PO BID Qty: 180 1RF Rx Instructions: Continue 2/day dosing; 90 day Rx semaglutide (weight loss) 2.4 mg/0.75 mL pen injector 2.4 mg subcut QWEEK Discharge Instructions Instructions: Upper respiratory infection in adults - Discharge instructions Additional Instructions: You were seen in the emergency department today for evaluation of shortness of breath, cough, and had a full evaluation and received a duo nebulizer and a first dose of prednisone for reactive airway disease exacerbation. Your x-ray showed no sign of pneumonia, but you likely have a viral upper respiratory infection. We also sent off a walking cough swab, this will not result for several days and you will be contacted with any positive results. I provided you with a course of steroids for your asthma exacerbation, please start this medication tomorrow and take the entire course. I also provided you with Tessalon Perles for management of your cough, they should know that cough can persist for several weeks after an infection has occurred. Please follow-up at your scheduled appointment with your primary care provider on Thursday and thank you for allowing us to be part of your care. HPI General Date/Time Provider Initiated Documentation: 06/27/24 16:10. Limitations to Documentation: no limitations. Information obtained by: patient and old records reviewed. HPI Narrative: MDM: In brief, this is a 59-year-old female patient with a past medical history significant for asthma, anemia, gastric bypass surgery, presented for evaluation of 2 and half weeks of cough. My differential includes but is not limited to viral URI, pneumonia, reactive airway disease exacerbation, certainly consider pulmonary edema, pleural effusion, pneumothorax but these are less consistent with the patient's history and physical examination. Her exposure to unvaccinated children does increase my concern for pertussis given the protracted duration of her cough. I am reassured by her lack of new hypoxia against severe respiratory failure, and she has no fever or tachycardia to suggest sepsis or bacteremia. Will obtain a COVID and flu swab, a pertussis swab, as well as a chest x-ray. Given her wheezing I provided her with a duo nebulizer treatment and a dose of prednisone. ED Course: COVID, flu, and influenza testing was negative, and I independently interpreted the patient's chest x-ray, which shows no evidence of infiltrate or other abnormality to suggest pneumonia, pulmonary edema, or other abnormality. Patient reports improvement in her symptoms after the above-noted medications, and I did provide her with a dose of Tessalon Perles for her cough. I will provide the patient with a prescription for Tessalon Perles as well as a prescription for prednisone to complete a 5-day burst for her reactive airway disease exacerbation. She will be contacted as to the results of her pertussis testing. I am most concerned for a viral upper respiratory infection in this person, she has had no definitive exposures to pertussis. At this time, the patient has had a full medical evaluation and is safe for discharge to home. They are hemodynamically stable, ambulatory, and tolerating PO. They are understanding of the follow-up plan and return precautions. They left our facility without incident. Cristela Romo MD HPI: This is a 59-year-old female patient with a past medical history significant for asthma, anemia, gastric bypass surgery. She is presenting for evaluation of 2-1/2 weeks of cough. Patient reports that initially she felt slightly unwell and she has had sick contacts with multiple of her grandchildren and her child, several of whom are unvaccinated. They have all had upper respiratory type symptoms. She reports that she has not had fevers but she has noticed that her work of breathing is such that she has had to use her albuterol inhaler more times than is typical for her. The patient normally only utilizes her inhaler a few times a year, and has not needed any oral steroid courses. The patient is concern for ongoing cough, which is nonproductive and not associated with any hemoptysis or chest pain. She has otherwise been in her normal state of health, eating and drinking normally. Exam: Gen: Awake and alert, in no apparent distress HEENT: Non-icteric sclera, nares clear, mucous membranes moist Neck: Supple Lungs: No apparent respiratory distress, normal respiratory effort. The patient has diffuse expiratory wheezes but no rhonchi, rales CV: Appears well perfused, heart with regular rate and rhythm, strong distal pulses Abdomen: Non-distended MSK: Moves 4 extremities without apparent limitation in ROM Skin: Visualized skin without rashes, cyanosis. Neuro: Normal Gait, no obvious focal deficits or facial asymmetry. Speaks in full, clear sentences. Psych: Appropriate for situation. Related Data Home Medications ?Medication ?Instructions ?Recorded ?Confirmed compressor, for nebulizer #1 ea 08/04/21 06/27/24 naproxen 375 mg tablet,delayed 375 mg PO BID PRN pain and 08/15/22 06/27/24 release (EC-Naproxen) INFLAMMATION #30 tabs albuterol sulfate 90 mcg/actuation 2 puff inhalation Q6H PRN 04/24/23 06/27/24 aerosol inhaler (ProAir HFA) shortness of breath or wheezing #8.5 grams estradiol 0.05 mg-norethindrone 1 patch transdermal .twice weekly 04/24/23 06/27/24 0.25 mg/24 hr semiwkly transderm #8 ea patch semaglutide 0.25 mg or 0.5 mg (2 0.25 mg (0.368 mL) subcut QWEEK #3 04/24/23 06/27/24 mg/3 mL) subcutaneous pen injector mL (Ozempic) cholecalciferol (vitamin D3) 250 250 mcg PO QWEEK #10 caps 05/08/23 06/27/24 mcg (10,000 unit) capsule iron sucrose 100 mg iron/5 mL 100 mg (5 mL) IV QWEEK 10 doses 05/08/23 06/27/24 intravenous solution (Venofer) #50 mL semaglutide (weight loss) 0.25 0.25 mg (0.5 mL) subcut QWEEK #2 mL 05/08/23 06/27/24 mg/0.5 mL subcutaneous pen injector (Wegovy) [id number] 120 mcg-dha 25 1 tab PO DAILY #90 tabs 06/19/23 06/27/24 mg-herb no.293 66.7 mg chew tablet (Alive Premium ) semaglutide (weight loss) 1 mg/0.5 1 mg (0.5 mL) subcut QWEEK #2 mL 06/19/23 06/27/24 mL subcutaneous pen injector (Clarke) levothyroxine 50 mcg tablet 50 mcg PO HS #90 tabs 06/23/23 06/27/24 semaglutide (weight loss) 1.7 1.7 mg subcut QWEEK 08/19/23 06/27/24 mg/0.75 mL subcutaneous pen injector bupropion HCl 150 mg tablet,12 hr 150 mg PO BID #180 tabs 09/10/23 06/27/24 sustained-release semaglutide (weight loss) 2.4 2.4 mg subcut QWEEK 12/02/23 06/27/24 mg/0.75 mL subcutaneous pen injector benzonatate 200 mg capsule 200 mg PO TID PRN #14 caps 06/27/24 prednisone 20 mg tablet 40 mg (2 x 20 mg) PO DAILY 4 days 06/27/24 #8 tabs Previous Rx's ?Medication ?Instructions ?Recorded compressor, for nebulizer #1 ea 08/04/21 naproxen 375 mg tablet,delayed 375 mg PO BID PRN pain and 08/15/22 release (EC-Naproxen) INFLAMMATION #30 tabs albuterol sulfate 90 mcg/actuation 2 puff inhalation Q6H PRN 04/24/23 aerosol inhaler (ProAir HFA) shortness of breath or wheezing #8.5 grams estradiol 0.05 mg-norethindrone 1 patch transdermal .twice weekly 04/24/23 0.25 mg/24 hr semiwkly transderm #8 ea patch semaglutide 0.25 mg or 0.5 mg (2 0.25 mg (0.368 mL) subcut QWEEK #3 04/24/23 mg/3 mL) subcutaneous pen injector mL (Ozempic) cholecalciferol (vitamin D3) 250 250 mcg PO QWEEK #10 caps 05/08/23 mcg (10,000 unit) capsule iron sucrose 100 mg iron/5 mL 100 mg (5 mL) IV QWEEK 10 doses 05/08/23 intravenous solution (Venofer) #50 mL semaglutide (weight loss) 0.25 0.25 mg (0.5 mL) subcut QWEEK #2 mL 05/08/23 mg/0.5 mL subcutaneous pen injector (Wegovy) [id number] 120 mcg-dha 25 1 tab PO DAILY #90 tabs 06/19/23 mg-herb no.293 66.7 mg chew tablet (Alive Premium ) semaglutide (weight loss) 1 mg/0.5 1 mg (0.5 mL) subcut QWEEK #2 mL 06/19/23 mL subcutaneous pen injector (Wegovy) levothyroxine 50 mcg tablet 50 mcg PO HS #90 tabs 06/23/23 bupropion HCl 150 mg tablet,12 hr 150 mg PO BID #180 tabs 09/10/23 sustained-release benzonatate 200 mg capsule 200 mg PO TID PRN #14 caps 06/27/24 prednisone 20 mg tablet 40 mg (2 x 20 mg) PO DAILY 4 days 06/27/24 #8 tabs Allergies Allergy/AdvReac Type Severity Reaction Status Date / Time No Known Allergies Allergy Verified 06/27/24 15:45 General Stated Complaint: RespSymp JAVI: 3 Course Vital Signs Vital signs: Vital Signs Temperature 36.8 C 06/27/24 15:42 Pulse 91 H 06/27/24 15:42 Respiratory Rate 16 06/27/24 15:42 Pulse Oximetry 98 06/27/24 15:42 Temperature 36.6 C 06/27/24 17:11 Temperature Source Tympanic 06/27/24 17:11 Pulse 75 06/27/24 17:11 Respiratory Rate 17 06/27/24 17:11 Respiratory Effort Normal, Non-Labored 06/27/24 17:40 Respiratory Depth Normal 06/27/24 17:40 Blood Pressure 112/69 06/27/24 17:11 Blood Pressure Mean 101 06/27/24 16:10 Blood Pressure Position Sitting 06/27/24 16:10 Pulse Oximetry 100 06/27/24 17:11 Oxygen Delivery Method Room Air 06/27/24 17:11 Oxygen Flow Rate 0 06/27/24 17:11 Pain Level 0 06/27/24 15:42 Lab/Test Results Lab/Test Results: Laboratory Tests Range/Units 06/27/24 16:35 COVID-19 Source NASOPHARYNX SARS-CoV-2 (PCR) (Negative) Negative Influenza Type A (PCR) (Negative) Negative Influenza Type B (PCR) (Negative) Negative RSV (PCR) (Negative) Negative Medical Decision Making Quality:SDOH Health Related Social Needs: No Data to Display PFSH All Active Problems (Updated 06/27/24 @ 17:52 by Cristela Romo MD) Reactive airway disease with acute exacerbation (Acute) Upper respiratory infection (Acute) Cough (Acute) Class 3 severe obesity without serious comorbidity with body mass index (BMI) of 45.0 to 49.9 in adult (Acute) Anemia affecting fourth (Acute) Stage 1 presymptomatic normoglycemic type 1 prediabetes (Acute) Hypothyroid (Chronic) Weight gain (Acute) w/ menopause! after 20+ years stable (180 lbs) wts post bariatric surgery! Mass of anus (Acute) Hormone replacement therapy (HRT) (Acute) Started (Jul 2022) by [facility], Dr. Coleman .. Sleep improved, w/ less nt sweats & hot flashes per chart rvw. 09/2022, ik Post-menopausal bleeding (Acute) D&C 09/2022 for endometrial sampling, [ ] Path.. Endo bx 05/30/22 proliferative endometrium Sono: 7mm endo stripe with no further bleeding. Iron deficiency anemia (Acute ~2013) Transf Sat % indicates iron-def, maybe infusion [ ] 09/2022.. Very low per 2013, 2015 lab results. Asthma (Chronic ~2013) Dysphagia (Acute) Recent choking episodes, difficulty w/ pills. Poor sleep (Acute) Weight gain status post gastric bypass (Acute) Abnormal weight gain (Acute) Elevated TSH (Acute) Nutrition disorder (Acute) Anemia (Chronic) Xeroderma (Acute) Medical History Back pain Acute on chronic. Wondering about breast reduction. Family history of diabetes mellitus in father Hip pain, right Possible ITB. Hx low back pain. Recent weight gain. History of blood transfusion Due to heavy menses over 3-4 years (x2), in [place]. Hypothyroid Intramural uterine fibroid Joint pain [facility] [place] URI (upper respiratory infection) ED, 06/2021 ... 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 History of gastric bypass (~2001) Family History Brother Alcohol abuse Anxiety Depression Father Anxiety Depression Diabetes Hypertension Prostate cancer Mother Depression Hypertension Maternal Aunt Diabetes Paternal Aunt Diabetes Maternal Uncle Diabetes Paternal Uncle Diabetes Paternal Grandmother Heart disease Hypertension Paternal Grandfather Heart disease Hypertension Maternal Grandmother Hypertension Paternal Grandfather Hypertension Social History Smoking/Tobacco Use Status: Former Tobacco Use tobacco type: cigarettes Quit Date: 11/02/16 Tobacco: How many years used: 10 Smoking risk assessment performed?: Yes Alcohol Intake: current Alcohol Intake frequency: a few times a month Drug use: Never Substance use type: does not use Adopted: No Caregiver/Support person: No Foster care: No Household members: spouse Housing: house Number of Children: 1 number of grandchildren: 3 Communication Needs: Corrective Lenses Education Level: vocational Do you need help understanding health information?: Never 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[employer], 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 [employer] Pets and animals: Yes Pets and animals: cat(s) Sexually active: Yes Do you think of yourself as: straight/heterosexual Current gender identity: female What is your relationship status?: How often do you talk on the phone with friends or family?: three or more times per week How often do you get together with friends or relatives?: three or more times per week Do you belong to any clubs or organized social groups?: no Panel score (0-1 are the most socially isolated patients): 2 What type of physical activity do you participate in: walking Duration: 30-45 minutes/day Frequency: 3-4 times per week Liliana/Orthodoxy: Yazdanism Special liliana needs: No Seatbelt use: always Helmet use: Yes Helmet use: always Drive intox or ride w/intox motor bus driver: No Do you feel safe at home: Yes Do you feel safe in your relationship?: Yes Female Reproductive History Menstrual Age of Menarche: 14 Duration of menses: 3-5 days History History 3 Para 1 Hx # Term Pregnancies Multiple births Hx # Pregnancies Ectopic pregnancies AB induced 2 Hx Number of Living Children 1 AB spontaneous Past Pregnancies Del. Date GA/Weeks # Preg Succ Route Wgt Sex Labor Lgth Anesthesia Location Prov Complic 11/08/84 40 No Yes vaginal Male [place] Delivery Date: 11/08/84 Last Updated by: Vania Bhandari Pt stated baby born at home
[2024-06-27] MEDS: Benzonatate 100 MG CAP (18:23)
[2024-06-30 12:55] LABS: B.holmesii DNA Not Detected (NotDetected); B.parapertussis DNA Not Detected (NotDetected); B.pertussis DNA Not Detected (NotDetected)
[2024-07-06 15:58] LABS: B.parapertussis NOT recovered; B.pertussis NOT recovered
== END 2024-06-27 18:24 | disposition home or self-care (01) ==
PROVIDERS: Emergency Provider Emergency Medicine; PCP Student in an Organized Health Care Education/Training Program
DX: J06.9 Acute upper respiratory infection, unspecified; J45.901 Unspecified asthma with (acute) exacerbation; Z79.899 Other long term (current) drug therapy; E03.9 Hypothyroidism, unspecified; Z98.84 Bariatric surgery status; D64.9 Anemia, unspecified
CPT/HCPCS: 87637; 87798; 94640; 99284; 71046; J7512; J7620

== ENCOUNTER 2025-07-05 11:50 | Outpatient (CLI) | payer BC, SELFPAY ==
[2025-07-05 11:26] LABS: Hemoglobin A1C 5.7 % (<5.7)
[2025-07-05 11:32] LABS: Abs Immature Grans 0.00 10^3/uL (0.0-0.06); HCT 41.8 % (36.0-46.0); HGB 13.8 g/dL (11.2-15.7); Immature Grans % 0.0 %; MCH 29.1 pg (27.0-33.0); MCHC 33.0 % (32.0-36.0); MCV 88 fL (80-95); MPV 11.7 fL (8.0-11.0); Platelet Count 195 10^3/uL (130-400); RBC 4.74 10^6/uL (3.93-5.22); RDW 12.9 % (11.7-14.6); RDW-SD 41.9 fL; WBC 4.47 10^3/uL (4.4-10.8)
[2025-07-05 11:51] LABS: ALT 24 U/L (14-59); AST 18 U/L (15-37); Albumin 3.9 g/dL (3.4-5.0); Alkaline Phosphatase 140 U/L (46-116); Anion Gap 8.2 mmol/L (3-11); BUN 14 mg/dL (7-18); Bilirubin, Total 0.5 mg/dL (0.2-1.0); CO2 26.8 mmol/L (21.0-32.0); Calcium 9.5 mg/dL (8.5-10.1); Calculated LDL 134 mg/dL (<100); Chloride 104 mmol/L (98-107); Cholesterol 249 mg/dL (<200); Estimated GFR 103.33 (mL/min/1.73m2); Ferritin 14 ng/mL (8-252); Glucose 101 mg/dL (74-106); HDL Cholesterol 95 mg/dL (>or=50); Potassium 4.2 mmol/L (3.5-5.1); Sodium 139 mmol/L (136-145); Total Protein 7.8 g/dL (6.4-8.2); Triglyceride 100 mg/dL (<150)
[2025-07-05 12:21] LABS: Iron 77 ug/dL (50-170); Total Iron Binding Capacity 419 ug/dL (250-450); Transferrin Sat 18 % (15-50)
== END 2025-07-05 11:51 | disposition home or self-care (01) ==
LOC: LBO 11:50
DX: D64.9 Anemia, unspecified (principal); E66.01 Morbid (severe) obesity due to excess calories; Z68.42 Body mass index [BMI] 45.0-49.9, adult; E03.9 Hypothyroidism, unspecified; E63.9 Nutritional deficiency, unspecified; R73.03 Prediabetes
CPT/HCPCS: 36415; 80053; 80061; 82728; 83036; 83540; 83550; 85025